=== PATIENT | male | born 1945 | race Caucasian/White ===

== ENCOUNTER 2018-02-16 06:15 | Day surgery (SDC) | payer MEDICARE ==
[2018-02-11 12:47] VITALS: BMI 30.7
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
[2018-02-16 06:48] VITALS: RESP 20; O2SAT 98
[2018-02-16] MEDS ORDERED: Lidocaine 2% PF (10 ml) Amp ONE (06:54)
[2018-02-16] MEDS ORDERED: Phenylephrine 10 mg/ml Inj ONE (06:54)
[2018-02-16] MEDS ORDERED: Iohexol 350mgl/ml 50 ML ONE (06:55)
[2018-02-16] MEDS ORDERED: Iodixanol 320 MG/ML 100 ML BOTTLE IV ONE (06:55)
[2018-02-16] MEDS ORDERED: Heparin 2,000 ML IV ONE (06:55)
[2018-02-16] MEDS ORDERED: Nitroglycerin 50mg in D5W 50 MG/250 ML BOTTLE IV ONE (06:55)
[2018-02-16] MEDS ORDERED: Iodixanol 320 MG/ML 200 ML BOTTLE IV ONE (06:55)
[2018-02-16 07:16] LABS: BASO # 0.04 K/mm3 (0.0-2.0); BASO % 0.5 % (0.0-3.0); EOS # 0.4 (0.0-0.7); EOS % 4.4 % (1.5-5.0); GRAN # 5.67 (1.4-6.5); GRAN % 65.9 % (50.0-68.0); HEMOGLOBIN 9.3 g/dL (14.0-18.0); LYMPH # 1.9 (1.2-3.4); LYMPH % 22.6 % (22.0-35.0); MEAN CELL VOLUME 80.1 fl (80.0-105.0); MEAN CORPUSCULAR HEMOGLOBIN 26.1 pg (25.0-35.0); MEAN CORPUSCULAR HGB CONC 32.6 g/dl (31.0-37.0); MEAN PLATELET VOLUME 9.1 fl (7.0-11.0); MONO # 0.6 (0.1-0.6); MONO % 6.6 % (1.0-6.0); RBC 3.56 10^6/uL (3.5-6.1); WHITE BLOOD COUNT 8.6 10^3/ul (4.5-11.0)
[2018-02-16 07:31] LABS: CALCIUM 8.8 mg/dL (8.4-10.5)
[2018-02-16] MEDS ORDERED: Midazolam 2 MG/2 ML VIAL ONE ×2 (07:32→08:11)
[2018-02-16 07:34] LABS: INR 1.06; PROTHROMBIN TIME 12.2 SECONDS (9.4-12.5)
[2018-02-16] MEDS ORDERED: Eptifibatide 20 mg/10mL Inj IVP ONE (08:07)
[2018-02-16] MEDS ORDERED: Bacitracin 500 Units/gm Oint Foilpak UD TOP ONE (08:56)
[2018-02-16] MEDS ORDERED: Sodium Chloride 0.9% 1,000 ML IV SCH (09:00)
--- NOTE | 2018-02-16 09:27 | CPOSTOP ---
DATE: 02/16/2018 CARDIOVASCULAR LAB POST PROCEDURE NOTE DICTATING PHYSICIAN: Cristel Nguyen MD AIRPLANE COVER MAKER: Lori Ybarra, rehabilitation technician. TYPE OF ANESTHESIA: Moderate conscious sedation. Total 2 mg of Versed, 100 of fentanyl given. Periodically started 1 mg of Versed, 50 of fentanyl. PRE-PROCEDURE DIAGNOSES: Unstable angina, history of coronary artery disease, in-stent restenosis. PROCEDURE PERFORMED: 1. Left heart catheterization, stenting of left anterior descending proximal and mid. 2. Angioplasty of mid left anterior descending with scoring balloon. FINDINGS: 1. LAD proximal 70-80% stenosis. 2. Mid LAD in-stent 80% stenosis. Patent stent in RCA. FINAL DIAGNOSIS: Single-vessel critical disease. POST PROCEDURE CONDITION: Post procedure, the patient's condition is stable. VASCULAR ACCESS SITE: Right femoral groin. CLOSURE DEVICE: Angio-Seal. TOTAL RADIATION DOSE: 15,275.4 milligray unit. TOTAL FLUORO TIME: 7 minutes. TOTAL CONTRAST USED: 90 mL. Cirstel Nguyen MD
[2018-02-16 12:25] VITALS: TEMP 97.8
[2018-02-16 13:05] LABS: BASO # 0.02 K/mm3 (0.0-2.0); BASO % 0.3 % (0.0-3.0); EOS # 0.3 (0.0-0.7); EOS % 4.2 % (1.5-5.0); GRAN # 4.02 (1.4-6.5); GRAN % 57.5 % (50.0-68.0); HEMOGLOBIN 8.7 g/dL (14.0-18.0); LYMPH # 2.1 (1.2-3.4); LYMPH % 30.4 % (22.0-35.0); MEAN CELL VOLUME 80.4 fl (80.0-105.0); MEAN CORPUSCULAR HEMOGLOBIN 25.9 pg (25.0-35.0); MEAN CORPUSCULAR HGB CONC 32.2 g/dl (31.0-37.0); MEAN PLATELET VOLUME 8.8 fl (7.0-11.0); MONO # 0.5 (0.1-0.6); MONO % 7.6 % (1.0-6.0); RBC 3.36 10^6/uL (3.5-6.1); RED CELL DISTRIBUTION WIDTH 15.1 % (11.5-14.5)
[2018-02-16 13:14] LABS: CALCIUM 8.2 mg/dL (8.4-10.5)
[2018-02-16 15:23] VITALS: PULSE 66
[2018-02-16 15:24] VITALS: BP 132/81
[2018-02-17] MEDS ORDERED: Multivitamin Vitamin B Complex (Nephro-Vite) Tab PO SCH (08:00)
== END 2018-02-16 16:00 | disposition home or self-care (01) ==
LOC: CATH 06:15 → 2RSO 09:05 → CATH 16:00
PROVIDERS: ATTEND Internal Medicine Cardiovascular Disease
DX: I25.110 Atherosclerotic heart disease of native coronary artery with unstable angina pectoris (principal); I21.4 Non-ST elevation (NSTEMI) myocardial infarction; N18.6 End stage renal disease; I12.0 Hypertensive chronic kidney disease with stage 5 chronic kidney disease or end stage renal disease; E78.5 Hyperlipidemia, unspecified; E11.22 Type 2 diabetes mellitus with diabetic chronic kidney disease; Z99.2 Dependence on renal dialysis
CPT/HCPCS: 36415; 80048; 80061; 82948; 85025; 85175; 85610; 85730; 86850; 86900; 93458; 99152; 99153; C1725; C1760; C1769 ×2; C1874; C1887; C2629; C9600; J1327; J1644 ×2; J2250; J3010; J7030; Q9966; Q9967 ×2

== ENCOUNTER 2018-04-15 17:08 | Inpatient (IN) | payer MEDICARE, BC ==
[2018-04-15 17:08] VITALS: BMI 30.7
[2018-04-15] MEDS ORDERED: Sodium Chloride 0.9% 1,000 ML IV ONE (17:29)
[2018-04-15] MEDS ORDERED: Sodium Chloride 0.9% 500 ML IV STA (17:35)
--- NOTE | 2018-04-15 17:35 | ED PDOC ---
Arrival/HPI - General Time Seen by Provider: 04/15/18 17:11 Historian: Patient - History of Present Illness Narrative History of Present Illness (Text): 04/15/18 17:35 72 year old male, whose past medical history includes cardiac stents (2 years ago), dialysis, on aspirin and brilinta, presents to the emergency department complaining of burning urination, earlier today. He also reports he was receiving his dialysis today and began to shivering, blankets and heat pads, did not help. Patient denies headache, dizziness, shortness of breath, dyspnea on exertion, cough, abdominal pain, nausea, vomiting, diarrhea, back pain, neck pain, or any other complaint. PMD: Dr. Hampton Air Table Operator: Dr. Tellez Time/Duration: 24 hours Symptom Course: Unchanged Activities at Onset: Light Context: Other ([facility]) Past Medical History - Provider Review Nursing Documentation Reviewed: Yes - Cardiac Hx Pacemaker: No - Pulmonary Hx Respiratory Disorders: No - Neurological Hx Paralysis: No - HEENT Hx HEENT Disorder: No - Renal Hx Renal Disorder: Yes - Endocrine/Metabolic Hx Endocrine Disorders: No - Hematological/Oncological Hx Blood Transfusions: No - Integumentary Hx Dermatological Disorder: No - Musculoskeletal/Rheumatological Hx Musculoskeletal Disorders: Yes - Gastrointestinal Hx Gastrointestinal Disorders: No - Genitourinary/Gynecological Hx Genitourinary Disorders: No - Psychiatric Hx Emotional Abuse: No Hx Physical Abuse: No Hx Substance Use: No - Surgical History Hx Coronary Stent: Yes (x1) - Anesthesia Hx Anesthesia Reactions: No Hx Malignant Hyperthermia: No - Suicidal Assessment Feels Threatened In Home Enviroment: No Family/Social History - Physician Review Nursing Documentation Reviewed: Yes Family/Social History: No Known Family HX Smoking Status: Never Smoked Hx Alcohol Use: No Hx Substance Use: No Allergies/Home Meds Allergies/Adverse Reactions: Allergies No Known Allergies Allergy (Verified 01/16/18 22:43) Home Medications: Home Meds Medication Instructions Recorded Confirmed RX: Ferrous Sulfate [Feosol] 325 mg PO DAILY 01/20/18 04/15/18 Review of Systems - Review of Systems Constitutional: Fevers, Other (chills ) Eyes: absent: Vision Changes Respiratory: absent: SOB, Cough Cardiovascular: absent: Chest Pain Gastrointestinal: absent: Abdominal Pain, Diarrhea, Nausea, Vomiting Genitourinary Male: Dysuria (burning sensation when urinating ) Musculoskeletal: absent: Back Pain, Neck Pain Skin: absent: Rash Neurological: absent: Headache, Dizziness Psychiatric: absent: Anxiety Physical Exam Vital Signs Reviewed: Yes Vital Signs Temp Pulse Resp BP Pulse Ox 04/15/18 17:25 101.4 F H 117 H 18 120/63 98 Temperature: Febrile Blood Pressure: Normal Pulse: Tachycardic Respiratory Rate: Normal Appearance: Positive for: Well-Appearing, Non-Toxic, Comfortable Pain Distress: None Mental Status: Positive for: Alert and Oriented X 3 - Systems Exam Head: Present: Atraumatic, Normocephalic Pupils: Present: PERRL Extroacular Muscles: Present: EOMI Conjunctiva: Present: Normal Mouth: Present: Moist Mucous Membranes Neck: Present: Normal Range of Motion Respiratory/Chest: Present: Clear to Auscultation, Good Air Exchange. No: Respiratory Distress, Accessory Muscle Use Cardiovascular: Present: Normal S1, S2, Tachycardic. No: Murmurs Abdomen: Present: Other (catheter to abdomen ). No: Tenderness, Distention, Peritoneal Signs Genitourinary Male: No: Penile Discharge, Testicle Tenderness (non tender scrotum ) Back: Present: Normal Inspection. No: CVA Tenderness Upper Extremity: Present: Other (amputation to the left arm ). No: Cyanosis, Edema Lower Extremity: Present: Normal Inspection. No: Edema Neurological: Present: GCS=15, CN II-XII Intact, Speech Normal Skin: Present: Warm, Dry, Normal Color. No: Rashes Psychiatric: Present: Alert, Oriented x 3, Normal Insight, Normal Concentration Medical Decision Making ED Course and Treatment: 04/15/18 17:35 Impression: 72 year old male who presents to the emergency department complaining of burning urination. Plan: -- VBG -- EKG -- Labs -- Chest X-ray -- IV Fluids -- Tylenol -- Blood Culture -- Urine Culture -- Influenza A B -- Urinalysis -- Reassess and disposition Prior Visits: Notes and results from previous visits were reviewed. Progress Notes: 04/15/18 18:24 EKG shows sinus tachycardia at 117bpm with pvcs 04/15/18 18:26 Chest X-ray reviewed, shows: IMPRESSION: No active pulmonary disease. 04/15/18 19:[address] Purvis, who is aware and agrees with the plan to admit the patient to [facility] for antibiotics and further evaluation with nephrology on consult - Lab Interpretations I have reviewed the lab results: Yes - RAD Interpretation Radiology Orders: 04/15/18 17:29 CHEST PORTABLE [RAD] Stat - EKG Interpretation Interpreted by ED Physician: Yes Type: 12 lead EKG - Medication Orders Current Medication Orders: Sodium Chloride (Sodium Chloride 0.9%) 1,000 mls @ 2,000 mls/hr IV .Q30M ONE Stop: 04/15/18 17:58 - Scribe Statement The provider has reviewed the documentation as recorded by the Rachelibantonette Gregory Provider Scribe Attestation: All medical record entries made by the Scribe were at my direction and personally dictated by me. I have reviewed the chart and agree that the record accurately reflects my personal performance of the history, physical exam, medical decision making, and the department course for this patient. I have also personally directed, reviewed, and agree with the discharge instructions and disposition. Disposition/Present on Arrival - Present on Arrival Any Indicators Present on Arrival: No History of DVT/PE: No History of Uncontrolled Diabetes: No Urinary Catheter: No History Surgical Site Infection Following: None - Disposition Have Diagnosis and Disposition been Completed?: Yes Diagnosis: UTI (urinary tract infection) Disposition: HOSPITALIZED Disposition Time: 18:50 Patient Plan: Admission Patient Problems: Current Active Problems Problem Status Onset UTI (urinary tract infection) Acute Condition: FAIR
[2018-04-15 17:42] LABS: VENOUS BLOOD GAS BASE EXCESS -1.1 mmol/L (0.0-2.0); VENOUS BLOOD GAS PO2 55 mm/Hg (30-55); VENOUS BLOOD PH 7.37 (7.32-7.43)
[2018-04-15 17:47] LABS: INR 1.19; PARTIAL THROMBOPLASTIN TIME 26.2 Seconds (25.1-36.5); PROTHROMBIN TIME 13.6 SECONDS (9.4-12.5)
[2018-04-15 17:50] LABS: ALB/GLOB RATIO 1.1 (1.1-1.8); CALCIUM 8.5 mg/dL (8.4-10.5)
[2018-04-15 17:53] LABS: BASO # 0.02 K/mm3 (0.0-2.0); BASO % 0.1 % (0.0-3.0); EOS # 0.1 (0.0-0.7); EOS % 0.7 % (1.5-5.0); GRAN # 12.36 (1.4-6.5); GRAN % 91.3 % (50.0-68.0); HEMOGLOBIN 9.8 g/dL (14.0-18.0); LYMPH # 0.6 (1.2-3.4); LYMPH % 4.6 % (22.0-35.0); MEAN CELL VOLUME 79.8 fl (80.0-105.0); MEAN CORPUSCULAR HGB CONC 32.6 g/dl (31.0-37.0); MEAN PLATELET VOLUME 9.2 fl (7.0-11.0); MONO # 0.5 (0.1-0.6); MONO % 3.3 % (1.0-6.0); PLATELET COUNT 284 10^3/uL (120.0-450.0); RBC 3.77 10^6/uL (3.5-6.1); RED CELL DISTRIBUTION WIDTH 15.6 % (11.5-14.5); WHITE BLOOD COUNT 13.6 10^3/uL (4.5-11.0)
--- NOTE | 2018-04-15 18:16 | RAD ---
Date of service: 04/15/2018 HISTORY: Sepsis Patient COMPARISON: 01/16/2018 FINDINGS: LUNGS: The lungs are well inflated and clear. PLEURA: No pleural effusions or pneumothorax. CARDIOVASCULAR: The heart is normal in size. Atherosclerotic aortic arch calcifications are present. OSSEOUS STRUCTURES: Within normal limits for the patient's age. VISUALIZED UPPER ABDOMEN: Normal. OTHER FINDINGS: None. IMPRESSION: No active pulmonary disease.
[2018-04-15] MEDS ORDERED: Magnesium Sulfate 2 gm/50 ml 2 GM/50 ML BAG IVPB ONE (18:27)
[2018-04-15 18:33] LABS: URINE BILIRUBIN NEGATIVE (NEGATIVE); URINE BLOOD MODERATE (NEGATIVE); URINE GLUCOSE (UA) 100 mg/dL (NEGATIVE); URINE LEUKOCYTE ESTERASE MODERATE Leu/uL (NEGATIVE); URINE PROTEIN 100 mg/dL (<30 mg/dL); URINE UROBILINOGEN 0.2 E.U./dL (<1 E.U./dL)
[2018-04-15 18:34] LABS: URINE APPEARANCE SL CLOUDY (CLEAR); URINE COLOR YELLOW (YELLOW)
[2018-04-15 18:41] LABS: ATYPICAL LYMPHOCYTE 1 % (0.0-0.0); LYMPHOCYTE 2 % (22.0-35.0); MONOCYTE 1 % (1.0-6.0); NEUTROPHIL 96 % (50.0-70.0); PLATELET ESTIMATE NORMAL (NORMAL)
[2018-04-15 18:45] LABS: URINE BACTERIA MANY (NEG); URINE WBC 25 - 30 /hpf (0-6)
[2018-04-15] MEDS ORDERED: cefTRIAXone 1 gm 1 GM/100 ML BAG IVPB STA (18:48)
--- NOTE | 2018-04-15 19:15 | CARD ---
APPROVED REPORT Date of service: 04/15/2018 EKG Measurement Heart [id number] <Conclusion> Sinus tachycardia with frequent and consecutive premature ventricular complexes and fusion complexes Abnormal ECG
[2018-04-16] MEDS ORDERED: cefTRIAXone 1 gm 1 GM/100 ML BAG IVPB SCH (10:00)
[2018-04-16] MEDS ORDERED: Barium Sulfate Susp 2.1% w/v, 2.0% w/w 450 mL Bottle PO ONE (10:58)
[2018-04-16] MEDS: Insulin Reg-MEDIUM-Coverage SC SCH ×3 (12:11→21:35)
[2018-04-16] MEDS: MEROPENEM 500 MG in NS 500 MG/50 ML BAG IVPB SCH ×2 (12:28→21:14)
--- NOTE | 2018-04-16 13:47 | HP ---
DATE OF EXAM: 04/16/2018 HISTORY OF PRESENT ILLNESS: I was called to see him. He is a 72-year-old man who presents with a history of being on peritoneal dialysis, comes in with burning on urination. He was shivering under the blankets. He was not feeling well overall and now he is here with a UTI sepsis picture possibly. PAST MEDICAL HISTORY: He has a past medical history of cardiac stents 2 years ago. He is on peritoneal dialysis home, he does it himself. He is on aspirin and Brilinta. His doctor is Dr. Tellez, for Nephrology and Dr. Hampton, his primary doctor does not come here. He has renal disorder. He has got musculoskeletal disorder of the left arm, amputated at the elbow. He has coronary stents. He also has hypertension, CAD, anemia and history high cholesterol. FAMILY HISTORY: No known family history. SOCIAL HISTORY: No smoker. No drinking. No drugs. ALLERGIES: NO KNOWN DRUG ALLERGIES. MEDICATIONS: He does take a fair amount of medications. He takes aspirin, Brilinta Catapres, Cozaar, iron, Lipitor, Lopressor and Nephro-Lay. REVIEW OF SYSTEMS: On review of systems, he has fever and chills. No acute vision or hearing changes. No shortness of breath or cough or chest pain or palpitations. No abdominal pain, nausea, vomiting, constipation or diarrhea. Does have burning sensation when he is urinating and comfortable. No back pain or neck pain or skin rashes. No headache or dizziness. No anxiety. PHYSICAL EXAMINATION: VITAL SIGNS: He has 101.4 temperature, 117 pulse, 18 respiratory rate, 120/63 blood pressure and 98% O2 sat. GENERAL: He is well appearing, nontoxic, comfortable, alert and oriented x3. HEENT: Head is atraumatic, normocephalic. Extraocular muscles are intact. Pupils are reactive to light and accommodation. Throat is moist. NECK: Supple. HEART: Regular rate. Normal S1 and S2. LUNGS: Decreased breath sounds bilaterally, but clear to auscultation. ABDOMEN: Soft and nontender. Positive bowel sounds. No guarding, no rebound or CVA tenderness. He does have the catheter in his abdomen. GENITALIA: In the ER, they did a genitale evaluation, testicles nontender, nontender scrotum, no penile discharge. EXTREMITIES: No CVA tenderness. He has a amputation of left arm. No edema of the extremities. NEUROLOGIC: GCS is 15. Cranial nerves II-XII grossly intact. Normal speech. Skin is warm and dry. Alert and oriented x3. LABORATORY DATA: He had multiple tests. He had a chest x-ray that showed no acute disease. An EKG which shows sinus tachycardia, consecutive premature ventricular complexes. He had lab tests done, negative for the flu. His urine was moderate leukocytes, many bacteria, moderate blood. He has 137 sodium, potassium 3.7, BUN 58, creatinine 7.1 peritoneal dialysis. GFR was , sugar is 132, also calcium is 8.5, phosphorous 5.2, magnesium 1.4, total bili is 0.9, AST is 27, ALT is 24, alk phos 84, total protein 7.6 and lactate was 1.7. He has 1.19 INR. He has a 13.6 white count elevated, 9.8 hemoglobin, 30.1 hematocrit with 284 platelets. He will be put back on his medications, he will have IV Rocephin, will have consult with Infectious Disease and Dr. Tellez, his kidney doctor. He is here for UTI. We are going to rule out sepsis. She also peritoneal dialysis, she has hypertension and hopefully he will improve. Trenton Purvis DO [facility] CENTERDesirae
[2018-04-16] MEDS ORDERED: Darbepoetin Alfa 60 mcg/ml Inj SC ONE (14:45)
--- NOTE | 2018-04-16 14:47 | CP.PCM.CON ---
History of Present Illness - History of Present Illness History of Present Illness: Nephrology Consultation Note: Assessment: Stable UTI with sepsis, hypomagnesemia CAD (3 vessel disease) with NSTEMI s/p cardiac cath and stents 01/19/18 Diabetic chronic Kidney Disease (E11.22) Hypertensive Chronic Kidney Disease (I12.0) End stage renal disease (N18.6) dependence on PD Anemia (D64.9), Hyperphosphatemia (E83.39), Secondary Hyperparathyroidism (E21.1), HTN (I12.0) Systolic CHF with LVEF 45% Plan: pt on PD with 2.5% [id number] mL exchange 4 times a day manually (4-5 hrs dwell time). pt will continue with his PD as per outpt regimen. will check fluid cell count and culture as well. d/w RN on floor. pt's son will bring supply from home nephrovite daily: continue same PRBC as needed for anemia. added POP s last Hb 9.8. aransep 60 mcg dose on 04/16/18 last phos level 5.2 acceptable. not on binders BP control with meds as ordered. on ARB as losartan Glycemic control, Dialysis consistent diet Further work up/management as per primary team Dose meds/antibiotics (if needed) for ESRD status. Avoid fleets enema/magnesium based laxatives. avoid carafate/maalox/ Al or mag based antacid/laxatives ID, urology following supplement lytes as needed Thanks for allowing me to participate in care of your patient. Will follow patient with you. Please call if any Qs. had d/w team Dr Andrea Marin Office: [phone] Chief Complaint; burning urination HPI: Pt is a 72 M with hx of ESRD on PD, chronic anemia, hyperphosphatemia, secondary hyperparathyroidism, Diabetes Mellitus, hypertension, CAD/p stent presented with complaints of dysuria and being managed for UTI with sepsis.pt feels better. Renal consult requested for ESRD management. reports PD fluid clear and denies pain abdomen. ROS: Cardiovascular: No chest pain. Pulmonary: No shortness of breath Gastrointestinal: denies abdominal pain No nausea. No vomiting. says fluid has been clear Genitourinary: c/o pain while urinating. Denies blood in urine. All other negative except as mentioned in HPI Physical Examination: General Appearance: Comfortable, in no acute respiratory distress, co-operative . Vitals reviewed and noted as below Head; Atraumatic, normocephalic ENT: no ulcers no thrush. Tongue is midline. Oropharynx: no rash or ulcers. EYES: Pupils are equal, round and reactive to light accommodation. Eye muscles and extraocular movement intact. Sclera is anicteric. Neck; supple no lymphadenopathy, no thyromegaly or bruit Lungs: Normal respiratory rate/effort. Breath sounds bilateral equal and clear Heart: Normal rate. s1s2 normal. No rub or gallop. Extremities: no edema. No varicose veins. hx of left hand amputation Neurological: Patient is alert, awake and oriented to person, place and time. No focal deficit. Strength bilateral appropriate and equal Skin: Warm and dry. Normal turgor. No rash. Palpitation: Normal elasticity for age Abdomen: Abdomen is soft. Bowel sounds +. There is no abdominal tenderness, no guarding/rigidity or organomegaly Psych: normal insight and normal affect/mood MSK: no joint tenderness or swelling. Digits and nails normal, no deformity : kidney or bladder not palpable Access: PD catheter Labs/imaging reviewed. Past medical history, past surgical history, family history, social history, allergy reviewed and noted as below Family Hx: no hx of CKD. Non contributory Past Patient History - Infectious Disease Hx of Infectious Diseases: None - Past Social History Smoking Status: Former Smoker - CARDIAC Hx Cardiac Disorders: Yes Hx Congestive Heart Failure: Yes (unsure) Hx Hypertension: Yes - PULMONARY Hx Respiratory Disorders: No - NEUROLOGICAL Hx Neurological Disorder: Yes Hx Transient Ischemic Attacks (TIA): Yes - HEENT Hx HEENT Problems: Yes (wears glasses) - RENAL Hx Chronic Kidney Disease: Yes Hx Dialysis: Yes (peritoneal) Hx Kidney Stones: Yes - ENDOCRINE/METABOLIC Hx Endocrine Disorders: Yes Hx Diabetes Mellitus Type 2: Yes - HEMATOLOGICAL/ONCOLOGICAL Hx Blood Disorders: No - INTEGUMENTARY Hx Dermatological Problems: No - MUSCULOSKELETAL/RHEUMATOLOGICAL Hx Musculoskeletal Disorders: Yes (left arm amputation) Hx Falls: No - GASTROINTESTINAL Hx Gastrointestinal Disorders: No - GENITOURINARY/GYNECOLOGICAL Hx Genitourinary Disorders: Yes Hx Urinary Tract Infection: Yes - PSYCHIATRIC Hx Psychophysiologic Disorder: No - SURGICAL HISTORY Hx Surgeries: Yes Hx Coronary Stent: Yes (x4) Hx Musculoskeletal Surgery: Yes (left arm amputation) - ANESTHESIA Hx Anesthesia Reactions: No Hx Malignant Hyperthermia: No Meds Allergies/Adverse Reactions: Allergies Allergy/AdvReac Type Severity Reaction Status Date / Time No Known Allergies Allergy Verified 01/16/18 22:43 - Medications Medications: Current Medications Aspirin (Aspirin Chewable) 81 mg PO DAILY [facility] Last Admin: 04/16/18 09:50 Dose: 81 mg Atorvastatin Calcium (Lipitor) 10 mg PO DAILY [facility] Last Admin: 04/16/18 09:50 Dose: 10 mg Clonidine HCl (Catapres) 0.1 mg PO BID [facility] Last Admin: 04/16/18 09:51 Dose: 0.1 mg Ferrous Sulfate (Feosol) 325 mg PO DAILY [facility] Last Admin: 04/16/18 09:50 Dose: 325 mg Meropenem/Sodium Chloride (Merrem Iv 500 Mg/Ns 50 Ml) 500 mg in 50 mls @ 12.5 mls/hr IVPB Q12 [facility]; Protocol Stop: 04/25/18 10:31 Last Admin: 04/16/18 12:28 Dose: 12.5 mls/hr Insulin Human Regular (Humulin R Med) 0 units SC [facility]; Protocol Last Admin: 04/16/18 12:11 Dose: 1 units Losartan Potassium (Cozaar) 100 mg PO DAILY [facility] Last Admin: 04/16/18 09:50 Dose: 100 mg Magnesium Oxide (Mag-Ox) 400 mg PO BID [facility] Metoprolol Tartrate (Lopressor) 50 mg PO BID [facility] Last Admin: 04/16/18 09:50 Dose: 50 mg Ticagrelor (Brilinta) 90 mg PO BID [facility] Last Admin: 04/16/18 09:50 Dose: 90 mg Vitamin B Complex/Vit C/Folic Acid (Nephro-Lay) 1 tab PO 0800 [facility] Results - Vital Signs Recent Vital Signs: Last Vital Signs Temp 98.6 F 04/16/18 09:00 Pulse 99 H 04/16/18 09:51 Resp 20 04/15/18 22:27 BP 113/70 04/16/18 09:51 Pulse Ox 98 04/15/18 21:01 - Labs Result Diagrams: 04/15/18 17:14 04/15/18 17:14 Labs: Laboratory Results - last 24 hr 12/05/18 12/05/18 12/05/18 17:14 17:14 17:14 WBC 13.6 H RBC 3.77 Hgb 9.8 L Hct 30.1 L MCV 79.8 L MCH 26.0 MCHC 32.6 RDW 15.6 H Plt Count 284 MPV 9.2 Gran % 91.3 H Lymph % (Auto) 4.6 L [place] % (Auto) 3.3 Eos % (Auto) 0.7 L Baso % (Auto) 0.1 Gran # 12.36 H Lymph # (Auto) 0.6 L [place] # (Auto) 0.5 Eos # (Auto) 0.1 Baso # (Auto) 0.02 Neutrophils % (Manual) 96 H Lymphocytes % (Manual) 2 L Atypical Lymphs % 1 H Monocytes % (Manual) 1 Platelet Evaluation Normal PT 13.6 H INR 1.19 APTT 26.2 pO2 55 VBG pH 7.37 VBG pCO2 42.0 VBG HCO3 24.3 VBG Total CO2 25.6 VBG O2 Sat (Calc) 90.6 H VBG Base Excess -1.1 L VBG Potassium 3.7 Sodium 135.0 Chloride 98.0 Glucose 140 H Lactate 1.7 FiO2 21.0 Potassium Carbon Dioxide Anion Gap BUN Creatinine Est GFR ( Amer) Est GFR (Non-Af Amer) POC Glucose (mg/dL) Random Glucose Calcium Phosphorus Magnesium Total Bilirubin AST ALT Alkaline Phosphatase Total Protein Albumin Globulin Albumin/Globulin Ratio Venous Blood Potassium 3.7 Urine Color Urine Appearance Urine pH Ur Specific [place] Urine Protein Urine Glucose (UA) Urine Ketones Urine Blood Urine Nitrate Urine Bilirubin Urine Urobilinogen Ur Leukocyte Esterase Urine RBC Urine WBC Ur Epithelial Cells Urine Bacteria Influenza Typ A,B (EIA) 04/15/18 04/15/18 04/15/18 17:14 17:30 18:29 WBC RBC Hgb Hct MCV MCH MCHC RDW Plt Count MPV Gran % Lymph % (Auto) [place] % (Auto) Eos % (Auto) Baso % (Auto) Gran # Lymph # (Auto) [place] # (Auto) Eos # (Auto) Baso # (Auto) Neutrophils % (Manual) Lymphocytes % (Manual) Atypical Lymphs % Monocytes % (Manual) Platelet Evaluation PT INR APTT pO2 VBG pH VBG pCO2 VBG HCO3 VBG Total CO2 VBG O2 Sat (Calc) VBG Base Excess VBG Potassium Sodium 137 Chloride 97 L Glucose Lactate FiO2 Potassium 3.7 Carbon Dioxide 23 Anion Gap 20 BUN 58 H Creatinine 7.1 H Est GFR ( Amer) 9 Est GFR (Non-Af Amer) 8 POC Glucose (mg/dL) Random Glucose 132 H Calcium 8.5 Phosphorus 5.2 H Magnesium 1.4 L Total Bilirubin 0.9 AST 27 ALT 24 Alkaline Phosphatase 84 Total Protein 7.6 Albumin 4.0 Globulin 3.6 Albumin/Globulin Ratio 1.1 Venous Blood Potassium Urine Color Yellow Urine Appearance Sl cloudy Urine pH 6.0 Ur Specific [place] 1.025 Urine Protein 100 H Urine Glucose (UA) 100 H Urine Ketones Negative Urine Blood Moderate H Urine Nitrate Negative Urine Bilirubin Negative Urine Urobilinogen 0.2 Ur Leukocyte Esterase Moderate H Urine RBC 5 - 10 Urine WBC 25 - 30 Ur Epithelial Cells 6 - 8 Urine Bacteria Many Influenza Typ A,B (EIA) Negative for flu a/b 04/15/18 04/16/18 04/16/18 22:40 07:17 11:18 WBC RBC Hgb Hct MCV MCH MCHC RDW Plt Count MPV Gran % Lymph % (Auto) [place] % (Auto) Eos % (Auto) Baso % (Auto) Gran # Lymph # (Auto) [place] # (Auto) Eos # (Auto) Baso # (Auto) Neutrophils % (Manual) Lymphocytes % (Manual) Atypical Lymphs % Monocytes % (Manual) Platelet Evaluation PT INR APTT pO2 VBG pH VBG pCO2 VBG HCO3 VBG Total CO2 VBG O2 Sat (Calc) VBG Base Excess VBG Potassium Sodium Chloride Glucose Lactate FiO2 Potassium Carbon Dioxide Anion Gap BUN Creatinine Est GFR ( Amer) Est GFR (Non-Af Amer) POC Glucose (mg/dL) 96 151 H 193 H Random Glucose Calcium Phosphorus Magnesium Total Bilirubin AST ALT Alkaline Phosphatase Total Protein Albumin Globulin Albumin/Globulin Ratio Venous Blood Potassium Urine Color Urine Appearance Urine pH Ur Specific [place] Urine Protein Urine Glucose (UA) Urine Ketones Urine Blood Urine Nitrate Urine Bilirubin Urine Urobilinogen Ur Leukocyte Esterase Urine RBC Urine WBC Ur Epithelial Cells Urine Bacteria Influenza Typ A,B (EIA)
--- NOTE | 2018-04-16 15:29 | CT ---
Date of service: 04/16/2018 PROCEDURE: CT Abdomen and Pelvis without intravenous contrast HISTORY: r/o pyelonephritis, r/o perinephritic abscess COMPARISON: None. TECHNIQUE: Without contrast.. Contrast dose: Radiation dose: Total exam DLP = 832.49 mGy-cm. This CT exam was performed using one or more of the following dose reduction techniques: Automated exposure control, adjustment of the mA and/or kV according to patient size, and/or use of iterative reconstruction technique. FINDINGS: LOWER THORAX: Unremarkable. LIVER: Unremarkable. No gross lesion or ductal dilatation. GALLBLADDER AND BILE DUCTS: Unremarkable. PANCREAS: Unremarkable. No gross lesion or ductal dilatation. SPLEEN: Unremarkable. ADRENALS: Unremarkable. No mass. KIDNEYS AND URETERS: There is perinephric stranding around the left kidney that is consistent with the clinical history of pyelonephritis. Multiple bilateral renal cysts are seen. There is no evidence of abscess. VASCULATURE: Unremarkable. No aortic aneurysm. Aortic calcification BOWEL: Unremarkable. No obstruction. No gross mural thickening. APPENDIX: Unremarkable. Normal appendix. PERITONEUM: There is a moderate amount of ascites. A peritoneal catheter is seen just above the bladder. LYMPH NODES: Unremarkable. No enlarged lymph nodes. BLADDER: Unremarkable. REPRODUCTIVE: Unremarkable. BONES: No acute fracture. OTHER FINDINGS: None. IMPRESSION: There is perinephric stranding around the left kidney that is consistent with the clinical history of pyelonephritis. Multiple bilateral renal cysts are seen. There is no evidence of abscess.
--- NOTE | 2018-04-16 15:45 | CON ---
DATE: 04/16/2018 The patient is in bed and in room 369, bed 2. CHIEF COMPLAINT: Fever and urinary symptoms times several days. HISTORY OF PRESENT ILLNESS: A 72-year-old male with history of coronary artery disease, history of renal failure on dialysis with peritoneal dialysis and TIA and long-time smoker, who is admitted now dysuria and was painful upon urination associated with fevers and chills and no abdominal pain. No flank pain. No headaches or blurred vision. REVIEW OF SYSTEM: Reveals a 14-point review of systems is performed. PAST MEDICAL HISTORY: Significant for coronary artery disease, TIA, long-time smoker and dialysis and renal failure. PAST SURGICAL HISTORY: Significant for cardiac catheterization with cardiac stent placement. ALLERGIES: THE PATIENT HAS NO KNOWN ALLERGIES. MEDICATIONS AT HOME: Include the patient to be on iron, atorvastatin, aspirin, metoprolol, losartan, clonidine, and vitamin. PHYSICAL EXAMINATION: GENERAL: The patient is in bed with a temperature of 101.4, heart rate of 117, respiratory rate of 18, blood pressure is 113/70. HEENT: Unremarkable. NECK: Supple. LUNGS: Have decreased breath sounds. HEART: Normal S1, S2. ABDOMEN: Soft, nontender. LABORATORY EXAMINATION: Reveals the patient's chest x-ray is negative and the white count of 13,600, hemoglobin of 9, platelets of 284 and differential is reviewed. Coagulation INR 1.1 and blood gases are reviewed. Chemistries reveals a creatinine of 7.1, magnesium 1.4. LFTs are normal and chloride is noted. Urinalysis reveals 25-30 WBCs, many bacteria, moderate leukocyte esterase, moderate blood proteinuria and glucosuria. ASSESSMENT AND PLAN: This is a 72-year-old male with a coronary artery disease and transient ischemic attack sepsis with a complicated urine as the source, must rule out underlying prostate disease and we will start the patient on meropenem, order a CT scan of the abdomen and pelvis with p.o. contrast only to rule out pyelonephritis and perinephric abscess and/or stones and always check on the blood cultures, urine cultures and check on a PSA. Recommend a Urology evaluation for this man with a complicated urinary tract infection and prostate disease as the course of his sepsis. Joey Begum MD [facility] # [id number]
--- NOTE | 2018-04-16 16:32 | PCM.URO ---
Urology Progress Note - Objective Lab Studies: Reviewed (thanks for gu consult plans to follow) Lab Results Last 24 Hours: Laboratory Results - last 24 hr 04/15/18 04/15/18 04/15/18 17:14 17:14 17:14 WBC 13.6 H RBC 3.77 Hgb 9.8 L Hct 30.1 L MCV 79.8 L MCH 26.0 MCHC 32.6 RDW 15.6 H Plt Count 284 MPV 9.2 Gran % 91.3 H Lymph % (Auto) 4.6 L [place] % (Auto) 3.3 Eos % (Auto) 0.7 L Baso % (Auto) 0.1 Gran # 12.36 H Lymph # (Auto) 0.6 L [place] # (Auto) 0.5 Eos # (Auto) 0.1 Baso # (Auto) 0.02 Neutrophils % (Manual) 96 H Lymphocytes % (Manual) 2 L Atypical Lymphs % 1 H Monocytes % (Manual) 1 Platelet Evaluation Normal PT 13.6 H INR 1.19 APTT 26.2 pO2 55 VBG pH 7.37 VBG pCO2 42.0 VBG HCO3 24.3 VBG Total CO2 25.6 VBG O2 Sat (Calc) 90.6 H VBG Base Excess -1.1 L VBG Potassium 3.7 Sodium 135.0 Chloride 98.0 Glucose 140 H Lactate 1.7 FiO2 21.0 Potassium Carbon Dioxide Anion Gap BUN Creatinine Est GFR ( Amer) Est GFR (Non-Af Amer) POC Glucose (mg/dL) Random Glucose Calcium Phosphorus Magnesium Total Bilirubin AST ALT Alkaline Phosphatase Total Protein Albumin Globulin Albumin/Globulin Ratio Venous Blood Potassium 3.7 Urine Color Urine Appearance Urine pH Ur Specific [place] Urine Protein Urine Glucose (UA) Urine Ketones Urine Blood Urine Nitrate Urine Bilirubin Urine Urobilinogen Ur Leukocyte Esterase Urine RBC Urine WBC Ur Epithelial Cells Urine Bacteria Influenza Typ A,B (EIA) 04/15/18 04/15/18 04/15/18 17:14 17:30 18:29 WBC RBC Hgb Hct MCV MCH MCHC RDW Plt Count MPV Gran % Lymph % (Auto) [place] % (Auto) Eos % (Auto) Baso % (Auto) Gran # Lymph # (Auto) [place] # (Auto) Eos # (Auto) Baso # (Auto) Neutrophils % (Manual) Lymphocytes % (Manual) Atypical Lymphs % Monocytes % (Manual) Platelet Evaluation PT INR APTT pO2 VBG pH VBG pCO2 VBG HCO3 VBG Total CO2 VBG O2 Sat (Calc) VBG Base Excess VBG Potassium Sodium 137 Chloride 97 L Glucose Lactate FiO2 Potassium 3.7 Carbon Dioxide 23 Anion Gap 20 BUN 58 H Creatinine 7.1 H Est GFR ( Amer) 9 Est GFR (Non-Af Amer) 8 POC Glucose (mg/dL) Random Glucose 132 H Calcium 8.5 Phosphorus 5.2 H Magnesium 1.4 L Total Bilirubin 0.9 AST 27 ALT 24 Alkaline Phosphatase 84 Total Protein 7.6 Albumin 4.0 Globulin 3.6 Albumin/Globulin Ratio 1.1 Venous Blood Potassium Urine Color Yellow Urine Appearance Sl cloudy Urine pH 6.0 Ur Specific [place] 1.025 Urine Protein 100 H Urine Glucose (UA) 100 H Urine Ketones Negative Urine Blood Moderate H Urine Nitrate Negative Urine Bilirubin Negative Urine Urobilinogen 0.2 Ur Leukocyte Esterase Moderate H Urine RBC 5 - 10 Urine WBC 25 - 30 Ur Epithelial Cells 6 - 8 Urine Bacteria Many Influenza Typ A,B (EIA) Negative for flu a/b 04/15/18 04/16/18 04/16/18 22:40 07:17 11:18 WBC RBC Hgb Hct MCV MCH MCHC RDW Plt Count MPV Gran % Lymph % (Auto) [place] % (Auto) Eos % (Auto) Baso % (Auto) Gran # Lymph # (Auto) [place] # (Auto) Eos # (Auto) Baso # (Auto) Neutrophils % (Manual) Lymphocytes % (Manual) Atypical Lymphs % Monocytes % (Manual) Platelet Evaluation PT INR APTT pO2 VBG pH VBG pCO2 VBG HCO3 VBG Total CO2 VBG O2 Sat (Calc) VBG Base Excess VBG Potassium Sodium Chloride Glucose Lactate FiO2 Potassium Carbon Dioxide Anion Gap BUN Creatinine Est GFR ( Amer) Est GFR (Non-Af Amer) POC Glucose (mg/dL) 96 151 H 193 H Random Glucose Calcium Phosphorus Magnesium Total Bilirubin AST ALT Alkaline Phosphatase Total Protein Albumin Globulin Albumin/Globulin Ratio Venous Blood Potassium Urine Color Urine Appearance Urine pH Ur Specific [place] Urine Protein Urine Glucose (UA) Urine Ketones Urine Blood Urine Nitrate Urine Bilirubin Urine Urobilinogen Ur Leukocyte Esterase Urine RBC Urine WBC Ur Epithelial Cells Urine Bacteria Influenza Typ A,B (EIA) 04/16/18 16:30 WBC RBC Hgb Hct MCV MCH MCHC RDW Plt Count MPV Gran % Lymph % (Auto) [place] % (Auto) Eos % (Auto) Baso % (Auto) Gran # Lymph # (Auto) [place] # (Auto) Eos # (Auto) Baso # (Auto) Neutrophils % (Manual) Lymphocytes % (Manual) Atypical Lymphs % Monocytes % (Manual) Platelet Evaluation PT INR APTT pO2 VBG pH VBG pCO2 VBG HCO3 VBG Total CO2 VBG O2 Sat (Calc) VBG Base Excess VBG Potassium Sodium Chloride Glucose Lactate FiO2 Potassium Carbon Dioxide Anion Gap BUN Creatinine Est GFR ( Amer) Est GFR (Non-Af Amer) POC Glucose (mg/dL) 182 H Random Glucose Calcium Phosphorus Magnesium Total Bilirubin AST ALT Alkaline Phosphatase Total Protein Albumin Globulin Albumin/Globulin Ratio Venous Blood Potassium Urine Color Urine Appearance Urine pH Ur Specific [place] Urine Protein Urine Glucose (UA) Urine Ketones Urine Blood Urine Nitrate Urine Bilirubin Urine Urobilinogen Ur Leukocyte Esterase Urine RBC Urine WBC Ur Epithelial Cells Urine Bacteria Influenza Typ A,B (EIA) Intake & Output: Intake & Output 04/15/18 04/16/18 04/16/18 18:59 06:59 18:59 Intake Total 480 Output Total 1250 Balance -770 Weight 185 lb Intake: Oral 480 Output: Drainage 1000 dialysis cath 1000 Urine 250 Urine, Voided 250 Vital Signs: Vital Signs - 24 hr 04/15/18 04/15/18 04/15/18 17:25 17:42 17:49 Temperature 101.4 F H 101.4 F H Pulse Rate 117 H 112 H Respiratory 18 18 Rate Blood Pressure 120/63 122/75 O2 Sat by Pulse 98 95 Oximetry 04/15/18 04/15/18 04/15/18 17:57 19:10 21:01 Temperature 99.3 F Pulse Rate 108 H 102 H 99 H Respiratory 122 H 20 22 Rate Blood Pressure 122/80 116/72 136/72 O2 Sat by Pulse 98 97 98 Oximetry 04/15/18 04/16/18 04/16/18 22:27 06:10 09:00 Temperature 100.1 F H 100.8 F H 98.6 F Pulse Rate Respiratory 20 Rate Blood Pressure O2 Sat by Pulse Oximetry 04/16/18 04/16/18 09:50 09:51 Temperature Pulse Rate 99 H 99 H Respiratory Rate Blood Pressure 113/70 113/70 O2 Sat by Pulse Oximetry
[2018-04-16] MEDS: Magnesium Oxide 400 mg Tab UD PO SCH (17:30)
[2018-04-16 21:59] LABS: BODY FLUID TYPE PERITONEAL
[2018-04-16 22:21] LABS: BF GROSS APPEARANCE CLEAR (CLEAR)
[2018-04-16 22:31] LABS: BODY FLUID TOTAL COUNT 100 (0-0)
[2018-04-17 06:42] LABS: HEMOGLOBIN 8.5 g/dL (14.0-18.0); MEAN CELL VOLUME 79.8 fl (80.0-105.0); MEAN CORPUSCULAR HEMOGLOBIN 25.7 pg (25.0-35.0); MEAN CORPUSCULAR HGB CONC 32.2 g/dl (31.0-37.0); MEAN PLATELET VOLUME 9.5 fl (7.0-11.0); RBC 3.31 10^6/uL (3.5-6.1); RED CELL DISTRIBUTION WIDTH 15.9 % (11.5-14.5); WHITE BLOOD COUNT 18.6 10^3/uL (4.5-11.0)
[2018-04-17 07:16] LABS: ALBUMIN 3.1 g/dL (3.0-4.8); CALCIUM 8.4 mg/dL (8.4-10.5)
[2018-04-17] MEDS: Insulin Reg-MEDIUM-Coverage SC SCH ×4 (09:01→23:45)
[2018-04-17] MEDS: MEROPENEM 500 MG in NS 500 MG/50 ML BAG IVPB SCH ×2 (09:06→21:15)
[2018-04-17] MEDS: Magnesium Oxide 400 mg Tab UD PO SCH ×2 (09:06→17:29)
[2018-04-17] MEDS: Multivitamin Vitamin B Complex (Nephro-Vite) Tab PO SCH (09:06)
[2018-04-17] MEDS ORDERED: Magnesium Sulfate 2 gm/50 ml 2 GM/50 ML BAG IVPB ONE (11:25)
[2018-04-17] MEDS ORDERED: Potassium Chloride 20 mEq ER Tab PO ONE (11:26)
--- NOTE | 2018-04-17 13:30 | PCM.URO ---
Urology Progress Note - Subjective Abdominal Pain: Yes Hematuria: Yes (antibiotics and out pt treatment from a gu standpoint ) - Objective Lab Results Last 24 Hours: Laboratory Results - last 24 hr 04/16/18 04/16/18 04/16/18 16:30 20:00 21:10 WBC RBC Hgb Hct MCV MCH MCHC RDW Plt Count MPV Sodium Potassium Chloride Carbon Dioxide Anion Gap BUN Creatinine Est GFR ( Amer) Est GFR (Non-Af Amer) POC Glucose (mg/dL) 182 H 166 H Random Glucose Calcium Magnesium Total Bilirubin AST ALT Alkaline Phosphatase Total Protein Albumin Globulin Albumin/Globulin Ratio Fluid Source Peritoneal Fluid Appearance Clear Fluid WBC 25.0 Fluid RBC 8.0 H Fluid Tot Cell Count 100 H Fluid Mononuclear Cell 33.3 H Fl Polymorphonucl Cell 66.7 H Fluid Comment Colorless 04/17/18 04/17/18 04/17/18 06:00 06:00 07:54 WBC 18.6 H D RBC 3.31 L Hgb 8.5 L Hct 26.4 L MCV 79.8 L MCH 25.7 MCHC 32.2 RDW 15.9 H Plt Count 217 MPV 9.5 Sodium 135 Potassium 3.6 Chloride 96 L Carbon Dioxide 26 Anion Gap 16 BUN 61 H Creatinine 7.0 H Est GFR ( Amer) 9 Est GFR (Non-Af Amer) 8 POC Glucose (mg/dL) 166 H Random Glucose 209 H Calcium 8.4 Magnesium 1.5 L Total Bilirubin 0.4 AST 30 ALT 20 Alkaline Phosphatase 115 Total Protein 6.3 Albumin 3.1 Globulin 3.2 Albumin/Globulin Ratio 1.0 L Fluid Source Fluid Appearance Fluid WBC Fluid RBC Fluid Tot Cell Count Fluid Mononuclear Cell Fl Polymorphonucl Cell Fluid Comment 04/17/18 11:23 WBC RBC Hgb Hct MCV MCH MCHC RDW Plt Count MPV Sodium Potassium Chloride Carbon Dioxide Anion Gap BUN Creatinine Est GFR ( Amer) Est GFR (Non-Af Amer) POC Glucose (mg/dL) 153 H Random Glucose Calcium Magnesium Total Bilirubin AST ALT Alkaline Phosphatase Total Protein Albumin Globulin Albumin/Globulin Ratio Fluid Source Fluid Appearance Fluid WBC Fluid RBC Fluid Tot Cell Count Fluid Mononuclear Cell Fl Polymorphonucl Cell Fluid Comment Intake & Output: Intake & Output 04/16/18 04/17/18 04/17/18 18:59 06:59 18:59 Intake Total 810 530 Output Total 100 1100 Balance 710 -570 Intake: IV 150 50 RIGHT FOREARM 150 50 Oral 660 480 Output: Drainage 1000 dialysis cath 1000 Urine 100 100 Urine, Voided 100 100 Other: # Voids Urine, Voided 3 5 # Bowel Movements 0 Vital Signs: Vital Signs - 24 hr 04/16/18 04/16/18 04/16/18 17:06 17:30 17:31 Temperature 99.5 F Pulse Rate 94 H 94 H 94 H Respiratory 20 Rate Blood Pressure 119/65 119/65 119/65 O2 Sat by Pulse 96 Oximetry 04/17/18 04/17/18 04/17/18 06:00 09:04 09:05 Temperature 98.9 F Pulse Rate 85 85 85 Respiratory 20 Rate Blood Pressure 115/57 L 115/57 L 115/57 L O2 Sat by Pulse 99 Oximetry
--- NOTE | 2018-04-17 13:40 | CP.PCM.PN ---
Subjective - Date & Time of Evaluation Date of Evaluation: 04/17/18 Time of Evaluation: 10:15 - Subjective Subjective: Feeling better, dysuria is improving, no fevers overnight, no nausea. Objective - Vital Signs/Intake and Output Vital Signs (last 24 hours): Temp Pulse Resp BP Pulse Ox 98.9 F 85 20 115/57 L 99 04/17/18 06:00 04/17/18 09:05 04/17/18 06:00 04/17/18 09:05 04/17/18 06:00 Intake and Output: 04/17/18 04/17/18 06:59 18:59 Intake Total 530 Output Total 1100 Balance -570 - Medications Medications: Current Medications Aspirin (Aspirin Chewable) 81 mg PO DAILY [facility] Last Admin: 04/17/18 09:06 Dose: 81 mg Atorvastatin Calcium (Lipitor) 10 mg PO DAILY [facility] Last Admin: 04/17/18 09:06 Dose: 10 mg Clonidine HCl (Catapres) 0.1 mg PO BID [facility] Last Admin: 04/17/18 09:04 Dose: 0.1 mg Meropenem/Sodium Chloride (Merrem Iv 500 Mg/Ns 50 Ml) 500 mg in 50 mls @ 12.5 mls/hr IVPB Q12 [facility]; Protocol Stop: 04/25/18 10:31 Last Admin: 04/17/18 09:06 Dose: 12.5 mls/hr Insulin Human Regular (Humulin R Med) 0 units SC ACHS [facility]; Protocol Last Admin: 04/17/18 09:01 Dose: 1 units Losartan Potassium (Cozaar) 100 mg PO DAILY [facility] Last Admin: 04/17/18 09:06 Dose: 100 mg Magnesium Oxide (Mag-Ox) 400 mg PO BID [facility] Last Admin: 04/17/18 09:06 Dose: 400 mg Metoprolol Tartrate (Lopressor) 50 mg PO BID [facility] Last Admin: 04/17/18 09:05 Dose: 50 mg Ticagrelor (Brilinta) 90 mg PO BID [facility] Last Admin: 04/17/18 09:05 Dose: 90 mg Vitamin B Complex/Vit C/Folic Acid (Nephro-Lay) 1 tab PO 0800 [facility] Last Admin: 04/17/18 09:06 Dose: 1 tab - Labs Labs: 04/17/18 06:00 12/07/18 06:00 PT 13.6 SECONDS (9.4-12.5) H 04/15/18 17:14 INR 1.19 04/15/18 17:14 APTT 26.2 Seconds (25.1-36.5) 04/15/18 17:14 - Constitutional Appears: Chronically Ill - Head Exam Head Exam: NORMAL INSPECTION - Neck Exam Neck Exam: absent: Meningismus - Respiratory Exam Respiratory Exam: Decreased Breath Sounds - Cardiovascular Exam Cardiovascular Exam: +S1, +S2 - GI/Abdominal Exam GI & Abdominal Exam: Soft. absent: Tenderness Assessment and Plan - Assessment and Plan (Free Text) Plan: Assessment Sepsis due to left sided pyelonephritis with gram negative bacilli, slowly improving CAD S/P PCI and stents DM ESRD on PD chronic CHF Plan continue Merrem pending identification and sensitivities of the gram negative bacilli in the urine (day 2) WBC count increased but patient is afebrile this morning, feeling a little better - will monitor clinically and trend WBC count - discussed with Dr. Purvis
--- NOTE | 2018-04-17 13:53 | CP.PCM.PN ---
Subjective - Date & Time of Evaluation Date of Evaluation: 04/17/18 Time of Evaluation: 13:52 - Subjective Subjective: Nephrology Consultation Note: Assessment: Stable UTI/left pyelonephritis with sepsis, hypomagnesemia CAD (3 vessel disease) with NSTEMI s/p cardiac cath and stents 01/19/18 Diabetic chronic Kidney Disease (E11.22) Hypertensive Chronic Kidney Disease (I12.0) End stage renal disease (N18.6) dependence on PD Anemia (D64.9), Hyperphosphatemia (E83.39), Secondary Hyperparathyroidism (E21.1), HTN (I12.0) Systolic CHF with LVEF 45% Plan: pt on PD with 2.5% 0860-2960 mL exchange 4 times a day manually (4-5 hrs dwell time). pt will continue with his PD as per outpt regimen. nephrovite daily: continue same PRBC as needed for anemia. added POP s last Hb 8.5. aransep 60 mcg dose on 04/16/18 last phos level 5.2 acceptable. not on binders BP control with meds as ordered. on ARB as losartan Glycemic control, Dialysis consistent diet Further work up/management as per primary team Dose meds/antibiotics (if needed) for ESRD status. Avoid fleets enema/magnesium based laxatives. avoid carafate/maalox/ Al or mag based antacid/laxatives ID, urology following supplement lytes as needed Thanks for allowing me to participate in care of your patient. Will follow patient with you. Please call if any Qs. had d/w team Dr Andrea Marin Office: [phone] Chief Complaint; burning urination HPI: Pt is a 72 M with hx of ESRD on PD, chronic anemia, hyperphosphatemia, secondary hyperparathyroidism, Diabetes Mellitus, hypertension, CAD/p stent presented with complaints of dysuria and being managed for UTI with sepsis.pt feels better. Renal consult requested for ESRD management. reports PD fluid clear and denies pain abdomen. ROS: Cardiovascular: No chest pain. Pulmonary: No shortness of breath Gastrointestinal: denies abdominal pain No nausea. No vomiting. says fluid has been clear Genitourinary: c/o mild pain while urinating. Denies blood in urine. All other negative except as mentioned in HPI Physical Examination: General Appearance: Comfortable, in no acute respiratory distress, co-operative . Vitals reviewed and noted as below Head; Atraumatic, normocephalic ENT: no ulcers no thrush. Tongue is midline. Oropharynx: no rash or ulcers. EYES: Pupils are equal, round and reactive to light accommodation. Eye muscles and extraocular movement intact. Sclera is anicteric. Neck; supple no lymphadenopathy, no thyromegaly or bruit Lungs: Normal respiratory rate/effort. Breath sounds bilateral equal and clear Heart: Normal rate. s1s2 normal. No rub or gallop. Extremities: no edema. No varicose veins. hx of left hand amputation Neurological: Patient is alert, awake and oriented to person, place and time. No focal deficit. Strength bilateral appropriate and equal Skin: Warm and dry. Normal turgor. No rash. Palpitation: Normal elasticity for age Abdomen: Abdomen is soft. Bowel sounds +. There is no abdominal tenderness, no guarding/rigidity or organomegaly Psych: normal insight and normal affect/mood MSK: no joint tenderness or swelling. Digits and nails normal, no deformity : kidney or bladder not palpable Access: PD catheter Labs/imaging reviewed. Past medical history, past surgical history, family history, social history, allergy reviewed and noted as below Family Hx: no hx of CKD. Non contributory Objective - Vital Signs/Intake and Output Vital Signs (last 24 hours): Temp Pulse Resp BP Pulse Ox 98.9 F 85 20 115/57 L 99 04/17/18 06:00 04/17/18 09:05 04/17/18 06:00 04/17/18 09:05 04/17/18 06:00 Intake and Output: 04/17/18 04/17/18 06:59 18:59 Intake Total 530 Output Total 1100 Balance -570 - Medications Medications: Current Medications Aspirin (Aspirin Chewable) 81 mg PO DAILY [facility] Last Admin: 04/17/18 09:06 Dose: 81 mg Atorvastatin Calcium (Lipitor) 10 mg PO DAILY [facility] Last Admin: 04/17/18 09:06 Dose: 10 mg Clonidine HCl (Catapres) 0.1 mg PO BID [facility] Last Admin: 04/17/18 09:04 Dose: 0.1 mg Meropenem/Sodium Chloride (Merrem Iv 500 Mg/Ns 50 Ml) 500 mg in 50 mls @ 12.5 mls/hr IVPB Q12 [facility]; Protocol Stop: 04/25/18 10:31 Last Admin: 04/17/18 09:06 Dose: 12.5 mls/hr Insulin Human Regular (Humulin R Med) 0 units SC ACHS [facility]; Protocol Last Admin: 04/17/18 11:32 Dose: Not Given Losartan Potassium (Cozaar) 100 mg PO DAILY [facility] Last Admin: 04/17/18 09:06 Dose: 100 mg Magnesium Oxide (Mag-Ox) 400 mg PO BID [facility] Last Admin: 04/17/18 09:06 Dose: 400 mg Metoprolol Tartrate (Lopressor) 50 mg PO BID [facility] Last Admin: 04/17/18 09:05 Dose: 50 mg Ticagrelor (Brilinta) 90 mg PO BID [facility] Last Admin: 04/17/18 09:05 Dose: 90 mg Vitamin B Complex/Vit C/Folic Acid (Nephro-Lay) 1 tab PO 0800 [facility] Last Admin: 04/17/18 09:06 Dose: 1 tab - Labs Labs: 04/17/18 06:00 04/17/18 06:00 PT 13.6 SECONDS (9.4-12.5) H 04/15/18 17:14 INR 1.19 04/15/18 17:14 APTT 26.2 Seconds (25.1-36.5) 04/15/18 17:14
--- NOTE | 2018-04-17 14:26 | PN ---
DATE: 04/17/2018 SUBJECTIVE: He is resting comfortably in bed. He slept fairly well last night. He is eating a little bit. I asked him to get out of bed to chair if possible. He is currently on Aranesp, aspirin, Brilinta, Catapres, Cozaar, insulin, Lipitor, Lopressor, magnesium, Merrem IV, Nephro-Lay, and Tylenol. He tells me the burning in the urine is a little bit better. PHYSICAL EXAMINATION: VITAL SIGNS: Temperature 98.9, pulse 85, blood pressure 115/57, respiratory rate 20, 99% O2 sat on room air. HEAD: Atraumatic, normocephalic. HEART: Regular rate with decreased breath sounds, but clear to auscultation. ABDOMEN: Soft, nontender. Positive bowel sounds. No guarding. No rebound. No CVA tenderness. EXTREMITIES: No edema. LABORATORY DATA: He has a white count that went from 13 up to 18.6. Hemoglobin dropped to 8.5, hematocrit 26.4, platelets of 217. Sodium 135, potassium 3.6, BUN 61, creatinine 7. He is on peritoneal dialysis. Last blood sugar was 166. Magnesium is 1.5, total bili is 0.4, AST is 30, ALT is 20, alk phos 115, total protein 6.3. Urine had many bacteria when he came in. Micro showed gram-negative rods in the urine. ASSESSMENT AND PLAN: He is being seen by Renal, Urology, Infectious Disease. We will continue with aggressive treatment and care. IV antibiotics. We will check the labs tomorrow. I asked him to get out of bed to chair daily. If he could do that, that would be great. He is here now for pyelonephritis, urinary tract infection. He has hypertension. He is on no dialysis. Trenton Purvis DO
--- NOTE | 2018-04-17 14:43 | CP.PCM.PCO ---
Physician Communication Note - Physician Communication Note Physician Communication Note: worsening leukocytosis urine sensitivities pending continue antibiotics
[2018-04-17 15:46] LABS: TOTAL PSA 12.4 ng/mL (< or = 4.0)
[2018-04-18] MEDS: Insulin Reg-MEDIUM-Coverage SC SCH ×4 (07:57→22:08)
[2018-04-18 08:16] LABS: HEMOGLOBIN 8.8 g/dL (14.0-18.0); MEAN CELL VOLUME 79.4 fl (80.0-105.0); MEAN CORPUSCULAR HEMOGLOBIN 25.5 pg (25.0-35.0); MEAN CORPUSCULAR HGB CONC 32.1 g/dl (31.0-37.0); MEAN PLATELET VOLUME 9.7 fl (7.0-11.0); RBC 3.45 10^6/uL (3.5-6.1); RED CELL DISTRIBUTION WIDTH 15.7 % (11.5-14.5); WHITE BLOOD COUNT 16.6 10^3/uL (4.5-11.0)
[2018-04-18 08:50] LABS: ALBUMIN 3.3 g/dL (3.0-4.8); CALCIUM 8.7 mg/dL (8.4-10.5)
[2018-04-18] MEDS: Magnesium Oxide 400 mg Tab UD PO SCH ×2 (09:03→17:30)
[2018-04-18] MEDS: Multivitamin Vitamin B Complex (Nephro-Vite) Tab PO SCH (09:03)
[2018-04-18] MEDS: cefTRIAXone 1 gm 1 GM/100 ML BAG IVPB SCH (10:05)
--- NOTE | 2018-04-18 13:04 | CP.PCM.PN ---
Subjective - Date & Time of Evaluation Date of Evaluation: 04/18/18 Time of Evaluation: 13:03 - Subjective Subjective: Nephrology Consultation Note: Assessment: Stable UTI/left pyelonephritis with sepsis, hypomagnesemia CAD (3 vessel disease) with NSTEMI s/p cardiac cath and stents 01/19/18 Diabetic chronic Kidney Disease (E11.22) Hypertensive Chronic Kidney Disease (I12.0) End stage renal disease (N18.6) dependence on PD Anemia (D64.9), Hyperphosphatemia (E83.39), Secondary Hyperparathyroidism (E21.1), HTN (I12.0) Systolic CHF with LVEF 45% Plan: seen on PD continue current nephrovite daily: continue same PRBC as needed for anemia. added POP s/p aransep 60 mcg dose on 04/16/18 phos stable BP control with meds as ordered. on ARB as losartan Glycemic control, Dialysis consistent diet Further work up/management as per primary team Dose meds/antibiotics (if needed) for ESRD status. Avoid fleets enema/magnesium based laxatives. avoid carafate/maalox/ Al or mag based antacid/laxatives ID, urology following ok from renal standpoint for d/c if abx can be given orally S: setill w/ dysuria Physical Examination: General Appearance: Comfortable, in no acute respiratory distress, co-operative . Vitals reviewed and noted as below Head; Atraumatic, normocephalic ENT: no ulcers no thrush. Tongue is midline. Oropharynx: no rash or ulcers. EYES: Pupils are equal, round and reactive to light accommodation. Eye muscles and extraocular movement intact. Sclera is anicteric. Neck; supple no lymphadenopathy, no thyromegaly or bruit Lungs: Normal respiratory rate/effort. Breath sounds bilateral equal and clear Heart: Normal rate. s1s2 normal. No rub or gallop. Extremities: no edema. No varicose veins. hx of left hand amputation Neurological: Patient is alert, awake and oriented to person, place and time. No focal deficit. Strength bilateral appropriate and equal Skin: Warm and dry. Normal turgor. No rash. Palpitation: Normal elasticity for age Abdomen: Abdomen is soft. Bowel sounds +. There is no abdominal tenderness, no guarding/rigidity or organomegaly Psych: normal insight and normal affect/mood MSK: no joint tenderness or swelling. Digits and nails normal, no deformity : kidney or bladder not palpable Access: PD catheter Labs/imaging reviewed. Past medical history, past surgical history, family history, social history, a llergy reviewed and noted as below Family Hx: no hx of CKD. Non contributory Objective - Vital Signs/Intake and Output Vital Signs (last 24 hours): Temp Pulse Resp BP Pulse Ox 98.1 F 97 H 20 153/89 H 97 04/18/18 06:52 04/18/18 09:04 04/18/18 06:52 04/18/18 09:04 04/18/18 06:52 Intake and Output: 04/18/18 04/18/18 06:59 18:59 Intake Total 290 Output Total 1000 Balance -710 - Medications Medications: Current Medications Aspirin (Aspirin Chewable) 81 mg PO DAILY [facility] Last Admin: 04/18/18 09:03 Dose: 81 mg Atorvastatin Calcium (Lipitor) 10 mg PO DAILY [facility] Last Admin: 04/18/18 09:03 Dose: 10 mg Clonidine HCl (Catapres) 0.1 mg PO BID [facility] Last Admin: 04/18/18 09:04 Dose: 0.1 mg Ceftriaxone Sodium (Rocephin 1 Gram Ivpb) 1 gm in 100 mls @ 100 mls/hr IVPB DAILY [facility]; Protocol Stop: 04/27/18 10:01 Last Admin: 04/18/18 10:05 Dose: 100 mls/hr Insulin Human Regular (Humulin R Med) 0 units SC ACHS [facility]; Protocol Last Admin: 04/18/18 12:42 Dose: 3 units Losartan Potassium (Cozaar) 100 mg PO DAILY [facility] Last Admin: 04/18/18 09:03 Dose: 100 mg Magnesium Oxide (Mag-Ox) 400 mg PO BID [facility] Last Admin: 04/18/18 09:03 Dose: 400 mg Metoprolol Tartrate (Lopressor) 50 mg PO BID [facility] Last Admin: 04/18/18 09:04 Dose: 50 mg Phenazopyridine HCl (Pyridium) 100 mg PO TID [facility] Last Admin: 04/18/18 09:03 Dose: 100 mg Ticagrelor (Brilinta) 90 mg PO BID [facility] Last Admin: 04/18/18 09:03 Dose: 90 mg Tramadol HCl (Ultram) 50 mg PO TID PRN PRN Reason: Pain, moderate (4-7) Vitamin B Complex/Vit C/Folic Acid (Nephro-Lay) 1 tab PO 0800 [facility]KIT Last Admin: 04/18/18 09:03 Dose: 1 tab - Labs Labs: 04/18/18 08:01 04/18/18 08:01 PT 13.6 SECONDS (9.4-12.5) H 04/15/18 17:14 INR 1.19 04/15/18 17:14 APTT 26.2 Seconds (25.1-36.5) 04/15/18 17:14
--- NOTE | 2018-04-18 13:24 | PN ---
DATE: 04/18/2018 SUBJECTIVE: The patient is in bed earlier, in no acute distress, nontoxic. No fevers or chills. PHYSICAL EXAMINATION: VITAL SIGNS: Temperature 98, blood pressure 153/60, respiratory rate 18. HEENT: Examination of HEENT is unremarkable. NECK: Supple. LUNGS: Decreased breath sounds. HEART: Normal S1, S2. ABDOMEN: Soft, nontender. LABORATORY DATA: Laboratory examination reveals the patient's white count is 16,600, hemoglobin of 8, platelets of 237. Coagulation is noted. Chemistries are noted. BUN 60, creatinine 7.3. WBCs are noted. The peritoneal fluid shows 25 wbc's and microbiology reveals the blood cultures are negative and the urine culture is E. Coli that is pansensitive including ampicillin sensitive. ASSESSMENT AND PLAN: This is a 72-year-old male with sepsis with a left-sided pyelonephritis with E-coli in the urine as the source. No evidence of obstruction or abscess on CT scan. We will follow the WBCs. Once it is improving, maybe able to switch to p.o. antibiotics. At this time we will discontinue the meropenem and switch to IV ceftriaxone and we will follow closely with you and case was discussed with Dr. Trenton Purvis. Joey Begum MD
--- NOTE | 2018-04-18 15:25 | PN ---
DATE: 04/18/2018 SUBJECTIVE: He is sitting up in bed. He is having some burning with his urination. He is on Pyridium, I added some tramadol, he is also on aspirin, Brilinta, Catapres, Cozaar, insulin coverage, potassium replacement, Lipitor, Lopressor, magnesium oxide, and magnesium replacement, vitamins for his peritoneal dialysis and Ultram now for pain. He is a little bit better with eating, but he is having pain when urinating. PHYSICAL EXAMINATION: VITAL SIGNS: She has a 98.1 temperature, 97 pulse, 153/89 blood pressure, 20 respiratory rate and 97% O2 sat on room air. HEENT: Head is atraumatic and normocephalic. HEART: Regular rate. LUNGS: Decreased breath sounds, but clear. ABDOMEN: Soft. No CVA tenderness. EXTREMITIES: Have no edema. LABORATORY DATA: He has a 16.6 white count still elevated, was as high as 18.6 starting to come down, 8.8 hemoglobin, 27.4 hematocrit and 237 platelets. He has 135 sodium, potassium 3.3 I have replaced potassium, BUN is 60 and creatinine 7.3 on peritoneal dialysis, sugar is 161, calcium 8.7, total bili is 0.5, AST is 35, ALT is 29, alk phos 100 and total protein 6.6. he had E. coli in the urine, it is very sensitive. Still the white count is elevated. We will continue with IV antibiotics as per Infectious Disease. He tramadol for the pain in the urine. He is also on Pyridium already, his regular medications potassium replacement. Check his labs tomorrow. Hopefully, when the white count comes down we can discharge him and change into tablets as per Infectious Disease. His white count is still quite high. Trenton Purvis DO MTDD
[2018-04-19 07:46] LABS: HEMOGLOBIN 8.2 g/dL (14.0-18.0); MEAN CELL VOLUME 78.9 fl (80.0-105.0); MEAN CORPUSCULAR HEMOGLOBIN 25.8 pg (25.0-35.0); MEAN CORPUSCULAR HGB CONC 32.7 g/dl (31.0-37.0); MEAN PLATELET VOLUME 9.5 fl (7.0-11.0); RBC 3.18 10^6/uL (3.5-6.1); RED CELL DISTRIBUTION WIDTH 15.6 % (11.5-14.5); WHITE BLOOD COUNT 11.3 10^3/uL (4.5-11.0)
[2018-04-19 08:34] LABS: ALB/GLOB RATIO 0.9 (1.1-1.8); ALBUMIN 3.2 g/dL (3.0-4.8); CALCIUM 8.5 mg/dL (8.4-10.5)
[2018-04-19] MEDS: Insulin Reg-MEDIUM-Coverage SC SCH ×4 (08:42→21:45)
[2018-04-19] MEDS: Multivitamin Vitamin B Complex (Nephro-Vite) Tab PO SCH (08:42)
[2018-04-19] MEDS: Magnesium Oxide 400 mg Tab UD PO SCH ×2 (09:23→17:23)
[2018-04-19] MEDS: cefTRIAXone 1 gm 1 GM/100 ML BAG IVPB SCH (09:25)
[2018-04-19] MEDS ORDERED: Vancomycin 1gm in NS 250ml 1 GM/250 ML BAG IVPB STA (10:39)
[2018-04-19] MEDS ORDERED: Alum-Mag Hydrox-Simethicone Susp (30 mL) PO PRN (11:23)
[2018-04-19] MEDS: Cefepime 1gm in NS 100ml 1 GM/100 ML BAG IVPB SCH (12:20)
--- NOTE | 2018-04-19 14:31 | PN ---
DATE: 04/19/2018 SUBJECTIVE: The patient is seen earlier today in room 365 and he is comfortable, doing well. Later, this morning, I was called that the patient had a temperature of over 100. PHYSICAL EXAMINATION VITAL SIGNS: Temperature earlier was 99.3 and a verbal , I was called by the nurse that temperature is over 100.8 with heart rate of 102, blood pressure is 150/80, and respiratory rate of 20. HEENT: Unremarkable. NECK: Supple. LUNGS: Decreased breath sounds. HEART: Normal S1, S2. ABDOMEN: Soft, nontender. LABORATORY DATA: Reveals white count of 11,300, hemoglobin of 8, platelets of 224. Coagulation is noted. Chemistries reveals BUN of 57, creatinine of 6.7. Urinalysis is noted. Peritoneal fluid is noted to have 25 wbc's and influenza is negative. Review of orders reveals the patient to be on ceftriaxone. DIAGNOSTIC DATA: The patient's last chest x-ray on 04/15/2018 is noted negative. We will order a chest x-ray today. ASSESSMENT AND PLAN: A 72-year-old male who is admitted with sepsis, left-sided pyelonephritis with Escherichia coli in the urine as a source, currie-sensitive, on ceftriaxone, negative blood cultures. The patient already had a CAT scan of the abdomen and pelvis which revealed perinephric stranding around the left kidney consistent with pyelonephritis and the patient also had a PSA which was elevated. The patient with a creatinine of 7.1 and has had elevated creatinine since January. Now, with new fever and tachycardia. We will discontinue ceftriaxone and start the patient on one dose of vancomycin and Maxipime. Source of the fever to be determined and repeating blood cultures, urine cultures, urinalysis, procalcitonin, chest x-ray, nasal methicillin-resistant Staphylococcus aureus screen, and working for nosocomial healthcare-associated infection versus a new urinary tract infection versus a new intra-abdominal pathology. We will adjust antibiotics to renal function. We will also order Dopplers of the lower extremity to rule out deep venous thrombosis and we will follow closely with you. Joey Begum MD [facility] # [id number]
--- NOTE | 2018-04-19 14:54 | RAD ---
Date of service: 04/19/2018 HISTORY: r/o hcap COMPARISON: 04/15/2018 TECHNIQUE: Chest PA and lateral FINDINGS: LUNGS: No active pulmonary disease. PLEURA: No significant pleural effusion identified. No pneumothorax apparent. CARDIOVASCULAR: No aortic atherosclerotic calcification present. Normal cardiac size. No pulmonary vascular congestion. OSSEOUS STRUCTURES: No significant abnormalities. VISUALIZED UPPER ABDOMEN: Normal. OTHER FINDINGS: None. IMPRESSION: No active disease.
[2018-04-19 15:49] LABS: PH,URINE 7.5 (4.7-8.0); URINE BILIRUBIN NEGATIVE (NEGATIVE); URINE BLOOD MODERATE (NEGATIVE); URINE GLUCOSE (UA) 250 mg/dL (NEGATIVE); URINE LEUKOCYTE ESTERASE TRACE Leu/uL (NEGATIVE); URINE PROTEIN 100 mg/dL (<30 mg/dL); URINE UROBILINOGEN 0.2 E.U./dL (<1 E.U./dL)
[2018-04-19 15:50] LABS: URINE APPEARANCE SLIGHT-CLOUDY (CLEAR); URINE COLOR YELLOW (YELLOW)
[2018-04-19 16:00] LABS: URINE BACTERIA TRACE (NEG)
--- NOTE | 2018-04-19 17:25 | PN ---
DATE: 04/19/2018 SUBJECTIVE: He has had multiple issues in the past 24 hours. He has some nausea, vomiting. He has had elevated temperatures. He has no appetite. He is becoming a little bit anemic. He is currently on aspirin, Brilinta, Catapres, Cozaar, insulin,Lipitor, Lopressor, Maalox, magnesium oxide, Maxipime IV, Nephro-Lay, potassium replacement, Pyridium, Tylenol, Ultram, vancomycin and Zofran. He is resting comfortably in bed. He is not as comfortable as he has been in the past few days. He is actually mildly uncomfortable. PHYSICAL EXAMINATION: VITAL SIGNS: He has 100.9 temp, he has 102 pulse, 159/86 blood pressure, 20 respiratory rate, 98% O2 sat on room air. HEENT: Head is atraumatic, normocephalic. HEART: Regular rate. LUNGS: Decreased breath sounds. ABDOMEN: Soft, nontender. EXTREMITIES: No edema. LABORATORY DATA: He has a 11.3 white count still better than when he came in, 8.2 hemoglobin; I discussed that if it falls below 8 he will get a transfusion; 25.1 hematocrit with 224 platelets. He has 133 sodium, potassium 3.4; I am replacing his potassium, BUN is 57, creatinine 6.7; he is on peritoneal dialysis. GFR is 8, sugar is 235, calcium is 8.5, total bili is 0.68. AST is 33, ALT is alk phos 110, total protein 6.5, albumin is 3.2. Many bacteria in the urine. He had E. coli in the urine, he is being re-cultured up by Infectious Disease. ASSESSMENT AND PLAN: He is being seen by Renal, Infectious Disease, Urology. We will continue aggressive treatment and care, re-culture, IV antibiotics. He was made n.p.o. Now he is up to clears. If he gets well, we will get him back up to eating regularly by dinner time, I am hoping. He is uncomfortable. Hoping the new antibiotic changes will help and we will see Tylenol for his temperatures and Mylanta for his indigestion. We will keep a very close eye on him. Trenton Purvis DO [facility] # [id number] [facility]
[2018-04-20 06:49] LABS: HEMOGLOBIN 8.2 g/dL (14.0-18.0); MEAN CELL VOLUME 80.5 fl (80.0-105.0); MEAN CORPUSCULAR HGB CONC 31.1 g/dl (31.0-37.0); MEAN PLATELET VOLUME 9.6 fl (7.0-11.0); RBC 3.28 10^6/uL (3.5-6.1); RED CELL DISTRIBUTION WIDTH 15.8 % (11.5-14.5); WHITE BLOOD COUNT 12.3 10^3/uL (4.5-11.0)
[2018-04-20 07:00] LABS: ALB/GLOB RATIO 0.9 (1.1-1.8); ALBUMIN 3.2 g/dL (3.0-4.8); CALCIUM 8.5 mg/dL (8.4-10.5)
[2018-04-20] MEDS: Insulin Reg-MEDIUM-Coverage SC SCH ×4 (08:21→21:34)
[2018-04-20] MEDS: Multivitamin Vitamin B Complex (Nephro-Vite) Tab PO SCH (08:21)
--- NOTE | 2018-04-20 09:24 | US ---
HISTORY: Leg pain and swelling. Evaluate for DVT PHYSICIAN(S): Syed So MD. TECHNIQUE: Duplex sonography and color-flow Doppler with graded compression were used to evaluate the deep venous systems of both lower extremities. FINDINGS: The visualized deep venous systems of both lower extremities are sonographically normal and compressible. Normal wave forms and augmentation are seen. There is no sonographic evidence for deep venous thrombosis in the visualized segments of both lower extremities. IMPRESSION: No sonographic evidence for deep venous thrombosis in the visualized segments of both lower extremities.
[2018-04-20] MEDS: Magnesium Oxide 400 mg Tab UD PO SCH ×2 (11:37→18:55)
[2018-04-20] MEDS: Cefepime 1gm in NS 100ml 1 GM/100 ML BAG IVPB SCH (11:43)
--- NOTE | 2018-04-20 11:47 | PN ---
DATE: 04/20/2018 SUBJECTIVE: He is resting comfortably in bed. He still has no appetite. The urination is much better, maybe 60% better, less discomfort. He is being seen by Infectious Disease, Renal and Urology. He 100% yet. PHYSICAL EXAMINATION: VITAL SIGNS: A 98.5 temperature, 90 pulse, 167/87 blood pressure, 20 respiratory rate and 98% O2 sat on room air. HEENT: Head is atraumatic and normocephalic. HEART: Regular rate. LUNGS: Decreased breath sounds, but clear. ABDOMEN: Soft and nontender. Positive bowel sounds. EXTREMITIES: No edema. MEDICATIONS: He is on aspirin, Brilinta, Catapres, Cozaar, insulin, Lipitor, Lopressor, Maalox, magnesium oxide, Maxipime IV, Nephro-Lay, Pyridium, Tylenol, Ultram and Zofran. LABORATORY DATA: He has a 12.3 white count little bit up from 11.3, 8.2 hemoglobin, 26.4 hematocrit and 239 platelets. A 134 sodium, potassium 3.6, BUN 58, creatinine 6.4, GFR is 9, sugar is 170, calcium 8.5, total bilirubin is 0.5, AST is 40, ALT is 32, alkaline phosphatase 88 and total protein 6.6. He is on peritoneal dialysis. He had E. coli. He is being re-cultured, being seen by Infectious Disease, Renal and . Continue aggressive treatment and care. He had few things going on UTI, pyelonephritis, anemia and hypertension. Trenton Purvis DO MTDD
--- NOTE | 2018-04-20 12:21 | CP.PCM.PN ---
Subjective - Date & Time of Evaluation Date of Evaluation: 04/20/18 Time of Evaluation: 09:35 - Subjective Subjective: No fevers this morning, no nausea but still struggles with appetite, no diarrhea. Objective - Vital Signs/Intake and Output Vital Signs (last 24 hours): Temp Pulse Resp BP Pulse Ox 98.9 F 100 H 20 150/82 98 04/19/18 17:02 04/19/18 17:24 04/19/18 17:02 04/19/18 17:24 04/19/18 17:02 Intake and Output: 04/19/18 04/20/18 18:59 06:59 Intake Total 5940 Output Total 3800 Balance 2140 - Medications Medications: Current Medications Acetaminophen (Tylenol 325mg Tab) 650 mg PO Q6H PRN PRN Reason: Fever >100.4 F Al Hydrox/Mg Hydrox/Simethicone (Maalox Plus 30 Ml) 30 ml PO DAILY PRN PRN Reason: Indigestion / Heartburn Last Admin: 04/19/18 12:19 Dose: 30 ml Aspirin (Aspirin Chewable) 81 mg PO DAILY [facility] Last Admin: 04/19/18 09:24 Dose: 81 mg Atorvastatin Calcium (Lipitor) 10 mg PO DAILY [facility] Last Admin: 04/19/18 09:23 Dose: 10 mg Clonidine HCl (Catapres) 0.1 mg PO BID [facility] Last Admin: 04/19/18 17:24 Dose: 0.1 mg Cefepime HCl (Maxipime 1gm) 1 gm in 100 mls @ 25 mls/hr IVPB Q24H [facility]; Protocol Stop: 04/28/18 10:46 Last Admin: 04/19/18 12:20 Dose: 25 mls/hr Insulin Human Regular (Humulin R Med) 0 units SC ACHS [facility]; Protocol Last Admin: 04/19/18 17:22 Dose: 1 units Losartan Potassium (Cozaar) 100 mg PO DAILY [facility] Last Admin: 04/19/18 09:24 Dose: 100 mg Magnesium Oxide (Mag-Ox) 400 mg PO BID [facility] Last Admin: 04/19/18 17:23 Dose: 400 mg Metoprolol Tartrate (Lopressor) 50 mg PO BID [facility] Last Admin: 04/19/18 17:24 Dose: 50 mg Ondansetron HCl (Zofran Inj) 4 mg IVP Q6H PRN PRN Reason: Nausea/Vomiting Phenazopyridine HCl (Pyridium) 100 mg PO TID [facility] Last Admin: 04/19/18 17:25 Dose: 100 mg Ticagrelor (Brilinta) 90 mg PO BID [facility] Last Admin: 04/19/18 17:24 Dose: 90 mg Tramadol HCl (Ultram) 50 mg PO TID PRN PRN Reason: Pain, moderate (4-7) Last Admin: 04/19/18 03:15 Dose: 50 mg Vitamin B Complex/Vit C/Folic Acid (Nephro-Lay) 1 tab PO 0800 [facility] Last Admin: 04/19/18 08:42 Dose: 1 tab - Labs Labs: 04/19/18 07:42 04/19/18 07:42 PT 13.6 SECONDS (9.4-12.5) H 04/15/18 17:14 INR 1.19 04/15/18 17:14 APTT 26.2 Seconds (25.1-36.5) 04/15/18 17:14 - Constitutional Appears: Non-toxic, No Acute Distress, Chronically Ill - Head Exam Head Exam: NORMAL INSPECTION - Neck Exam Neck Exam: absent: Meningismus - Respiratory Exam Respiratory Exam: Decreased Breath Sounds - Cardiovascular Exam Cardiovascular Exam: +S1, +S2 - GI/Abdominal Exam GI & Abdominal Exam: Soft. absent: Tenderness Assessment and Plan - Assessment and Plan (Free Text) Plan: Assessment Sepsis due to left sided pyelonephritis with E. coli, with new onset fevers and SIRS, R/O new source of sepsis DM ESRD on PD chronic CHF Plan continue Vancomycin and Cefepime day 2 pending repeat urine cx; repeat blood cx are negative and CXR PA-L does not show infiltrates will continue to monitor clinically, trend WBC count, trend fever curve discussed with Dr. Purvis
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
--- NOTE | 2018-04-20 20:42 | CP.PCM.PN ---
Subjective - Date & Time of Evaluation Date of Evaluation: 04/20/18 Time of Evaluation: 20:37 - Subjective Subjective: Nephrology Consultation Note: Assessment: Stable UTI/left pyelonephritis with sepsis, hypomagnesemia CAD (3 vessel disease) with NSTEMI s/p cardiac cath and stents 01/19/18 Diabetic chronic Kidney Disease (E11.22) Hypertensive Chronic Kidney Disease (I12.0) End stage renal disease (N18.6) dependence on PD Anemia (D64.9), Hyperphosphatemia (E83.39), Secondary Hyperparathyroidism (E21.1), HTN (I12.0) Systolic CHF with LVEF 45% Plan: seen on PD continue current treatment nephrovite daily PRBC as needed for anemia. added POP s/p aransep 60 mcg dose on 04/16/18 phos stable BP control with meds as ordered. on ARB as losartan Glycemic control, Dialysis consistent diet Further work up/management as per primary team ok from renal standpoint for d/c if abx can be given orally Physical Examination: General Appearance: Comfortable, in no acute respiratory distress, co-operative . Vitals reviewed and noted as below Head; Atraumatic, normocephalic ENT: no ulcers no thrush. EYES: Eye muscles and extraocular movement intact. Sclera is anicteric. Neck; supple no lymphadenopathy, no thyromegaly or bruit Lungs: Normal respiratory rate/effort. Breath sounds bilateral equal and clear Heart: Normal rate. s1s2 normal. No rub or gallop. Extremities: no edema. No varicose veins. hx of left hand amputation Neurological: Patient is alert, awake and oriented to person, place and time. No focal deficit. Strength bilateral appropriate and equal Skin: Warm and dry. Normal turgor. Abdomen: Abdomen is soft. Bowel sounds +. There is no abdominal tenderness, no guarding/rigidity or organomegaly Psych: normal insight and normal affect/mood MSK: no joint tenderness or swelling. Access: PD catheter Objective - Vital Signs/Intake and Output Vital Signs (last 24 hours): Temp Pulse Resp BP Pulse Ox 98.8 F 75 20 152/80 H 96 04/20/18 16:21 04/20/18 19:01 04/20/18 16:21 04/20/18 18:56 04/20/18 16:21 - Medications Medications: Current Medications Acetaminophen (Tylenol 325mg Tab) 650 mg PO Q6H PRN PRN Reason: Fever >100.4 F Al Hydrox/Mg Hydrox/Simethicone (Maalox Plus 30 Ml) 30 ml PO DAILY PRN PRN Reason: Indigestion / Heartburn Last Admin: 04/19/18 12:19 Dose: 30 ml Aspirin (Aspirin Chewable) 81 mg PO DAILY [facility] Last Admin: 04/20/18 11:36 Dose: 81 mg Atorvastatin Calcium (Lipitor) 10 mg PO DAILY [facility] Last Admin: 04/20/18 11:43 Dose: 10 mg Clonidine HCl (Catapres) 0.1 mg PO BID [facility] Last Admin: 04/20/18 18:56 Dose: 0.1 mg Cefepime HCl (Maxipime 1gm) 1 gm in 100 mls @ 25 mls/hr IVPB Q24H [facility]; Protocol Stop: 04/28/18 10:46 Last Admin: 04/20/18 11:43 Dose: 25 mls/hr Insulin Human Regular (Humulin R Med) 0 units SC ACHS [facility]; Protocol Last Admin: 04/20/18 17:10 Dose: Not Given Losartan Potassium (Cozaar) 100 mg PO DAILY [facility] Last Admin: 04/20/18 11:37 Dose: 100 mg Magnesium Oxide (Mag-Ox) 400 mg PO BID [facility] Last Admin: 04/20/18 18:55 Dose: 400 mg Metoprolol Tartrate (Lopressor) 50 mg PO BID [facility] Last Admin: 04/20/18 19:01 Dose: 50 mg Ondansetron HCl (Zofran Inj) 4 mg IVP Q6H PRN PRN Reason: Nausea/Vomiting Phenazopyridine HCl (Pyridium) 100 mg PO TID [facility] Last Admin: 04/20/18 18:56 Dose: 100 mg Ticagrelor (Brilinta) 90 mg PO BID [facility] Last Admin: 04/20/18 18:55 Dose: 90 mg Tramadol HCl (Ultram) 50 mg PO TID PRN PRN Reason: Pain, moderate (4-7) Last Admin: 04/20/18 11:38 Dose: 50 mg Vitamin B Complex/Vit C/Folic Acid (Nephro-Lay) 1 tab PO 0800 [facility] Last Admin: 04/20/18 08:21 Dose: 1 tab - Labs Labs: 04/20/18 06:00 04/20/18 06:00 PT 13.6 SECONDS (9.4-12.5) H 04/15/18 17:14 INR 1.19 04/15/18 17:14 APTT 26.2 Seconds (25.1-36.5) 04/15/18 17:14
[2018-04-21 06:11] LABS: HEMOGLOBIN 7.6 g/dL (14.0-18.0); MEAN CELL VOLUME 79.9 fl (80.0-105.0); MEAN CORPUSCULAR HEMOGLOBIN 25.9 pg (25.0-35.0); MEAN CORPUSCULAR HGB CONC 32.3 g/dl (31.0-37.0); MEAN PLATELET VOLUME 9.1 fl (7.0-11.0); RBC 2.94 10^6/uL (3.5-6.1); RED CELL DISTRIBUTION WIDTH 15.8 % (11.5-14.5); WHITE BLOOD COUNT 11.2 10^3/uL (4.5-11.0)
[2018-04-21 07:13] LABS: ALB/GLOB RATIO 0.9 (1.1-1.8); ALBUMIN 2.9 g/dL (3.0-4.8); CALCIUM 7.9 mg/dL (8.4-10.5)
[2018-04-21 09:16] LABS: IRON 19 ug/dL (45-180)
[2018-04-21] MEDS: Insulin Reg-MEDIUM-Coverage SC SCH ×4 (09:18→21:47)
[2018-04-21 09:25] LABS: % IRON SATURATION 8 % (20-55); TOTAL IRON BINDING CAPACITY 221 ug/dL (261-462)
[2018-04-21] MEDS: Multivitamin Vitamin B Complex (Nephro-Vite) Tab PO SCH (09:25)
[2018-04-21] MEDS ORDERED: Lidocaine/Prilocaine 2.5%-2.5% Cream(30 gm) TOP ONE (09:58)
[2018-04-21] MEDS ORDERED: Darbepoetin Alfa 100 mcg/ml Inj SC SCH (10:00)
--- NOTE | 2018-04-21 10:17 | CP.PCM.PCO ---
Physician Communication Note - Physician Communication Note Physician Communication Note: blood today, hypokalemic-replaced, decreased iron stores supplemented
--- NOTE | 2018-04-21 11:56 | PN ---
DATE: 04/21/2018 SUBJECTIVE: He is sitting up in bed this morning. He is quite comfortable. He tells me he is starting to feel better. He has less pain when he urinates, less discomfort. He has got a better appetite. I think this is the first day that he really has turned the corner and is telling me that he is feeling a little bit better. MEDICATIONS: He is currently on aspirin, Brilinta Catapres, Cozaar, insulin, Lipitor, Lopressor, magnesium, Maxipime, Nephro-Lay, Pyridium, Tylenol, Ultram. PHYSICAL EXAMINATION: VITAL SIGNS: He has 98.8 temperature, 75 pulse, 152/80 blood pressure, 20 respiratory rate, 96% O2 sat on room air. HEAD: Atraumatic, normocephalic. HEART: Regular rate. LUNGS: Decreased breath sounds, but clear. ABDOMEN: Soft, nontender. Positive bowel sounds. EXTREMITIES: No edema. LABORATORY DATA: He has a 132 sodium; potassium 3.1, we will replace the potassium; BUN is 55; creatinine 6.5. He is on peritoneal dialysis. Last blood sugar was 267. He has a 7.9 calcium, 0.6 bili, AST is 39, ALT is 40, alk phos 95, total protein is 5.9. White count 7.2, it is the best it has been, 7.6 hemoglobin, 23.5 hematocrit with 198 platelets. ASSESSMENT AND PLAN: I am going to transfuse him 2 units of packed red blood cells because he became anemic. I discussed this with Infectious Disease. He needs to be on IV antibiotics for a few more days. We will check his labs tomorrow. Replace his potassium and transfuse. Trenton Purvis DO
[2018-04-21] MEDS ORDERED: Potassium Chloride 20 mEq ER Tab PO ONE (12:00)
--- NOTE | 2018-04-21 12:18 | CP.PCM.PN ---
<Pa Pryor - Last Filed: 04/21/18 14:30> Subjective - Date & Time of Evaluation Date of Evaluation: 04/21/18 Time of Evaluation: 07:45 - Subjective Subjective: PGY6 GI Fellow Progress Note Patient seen and examined bedside this morning. The patient admits to one episode of nausea and vomiting following eating meat last night for dinner. Has minimal appetite and forced himself to eat, felt nauseated and regurgitated. No episodes this morning with breakfast. Feels better overall today. 12 system ROS performed and negative except where stated Objective - Vital Signs/Intake and Output Vital Signs (last 24 hours): Temp Pulse Resp BP Pulse Ox 98.9 F 78 20 130/78 95 04/21/18 08:50 04/21/18 11:45 04/21/18 08:50 04/21/18 11:45 04/21/18 08:50 Intake and Output: 04/21/18 04/21/18 06:59 18:59 Intake Total 1640 Output Total 2300 Balance -660 - Medications Medications: Current Medications Acetaminophen (Tylenol 325mg Tab) 650 mg PO Q6H PRN PRN Reason: Fever >100.4 F Aspirin (Aspirin Chewable) 81 mg PO DAILY [facility] Last Admin: 04/21/18 11:45 Dose: 81 mg Atorvastatin Calcium (Lipitor) 10 mg PO DAILY [facility] Last Admin: 04/21/18 11:47 Dose: 10 mg Clonidine HCl (Catapres) 0.1 mg PO BID [facility] Last Admin: 04/21/18 11:45 Dose: 0.1 mg Darbepoetin Jcarlos (Aranesp) 100 mcg SC QWK [facility] Ferrous Gluconate (Fergon) 324 mg PO TID [facility] Last Admin: 04/21/18 11:45 Dose: 324 mg Furosemide (Lasix) 80 mg PO DAILY [facility] Last Admin: 04/21/18 11:44 Dose: 80 mg Cefepime HCl (Maxipime 1gm) 1 gm in 100 mls @ 25 mls/hr IVPB Q24H [facility]; Protocol Stop: 04/28/18 10:46 Last Admin: 04/20/18 11:43 Dose: 25 mls/hr Insulin Human Regular (Humulin R Med) 0 units SC ACHS [facility]; Protocol Last Admin: 04/21/18 11:46 Dose: 1 units Losartan Potassium (Cozaar) 100 mg PO DAILY [facility] Last Admin: 04/21/18 11:43 Dose: 100 mg Metoprolol Tartrate (Lopressor) 100 mg PO BID [facility] Last Admin: 04/21/18 11:44 Dose: 100 mg Ondansetron HCl (Zofran Inj) 4 mg IVP Q6H PRN PRN Reason: Nausea/Vomiting Ticagrelor (Brilinta) 90 mg PO BID [facility] Last Admin: 04/21/18 11:44 Dose: 90 mg Tramadol HCl (Ultram) 50 mg PO TID PRN PRN Reason: Pain, moderate (4-7) Last Admin: 04/20/18 11:38 Dose: 50 mg Vitamin B Complex/Vit C/Folic Acid (Nephro-Lay) 1 tab PO 0800 [facility] Last Admin: 04/21/18 09:25 Dose: 1 tab - Labs Labs: 04/21/18 05:30 04/21/18 05:30 PT 13.6 SECONDS (9.4-12.5) H 04/15/18 17:14 INR 1.19 04/15/18 17:14 APTT 26.2 Seconds (25.1-36.5) 04/15/18 17:14 - Constitutional Appears: Non-toxic, No Acute Distress - Eye Exam Eye Exam: EOMI, PERRL - ENT Exam ENT Exam: Mucous Membranes Moist - Respiratory Exam Respiratory Exam: Clear to Ausculation Bilateral. absent: Rales, Rhonchi, Wheezes - Cardiovascular Exam Cardiovascular Exam: RRR, +S1, +S2 - GI/Abdominal Exam GI & Abdominal Exam: Soft, Normal Bowel Sounds. absent: Distended, Firm, Guarding, Tenderness, Organomegaly - Extremities Exam Extremities Exam: absent: Pedal Edema Additional comments: left hand amputated - Neurological Exam Neurological Exam: Alert, Awake, Oriented x3 - Psychiatric Exam Psychiatric exam: Normal Affect, Normal Mood - Skin Skin Exam: Dry, Warm Assessment and Plan - Assessment and Plan (Free Text) Assessment: Patient is a 72yo male with PMHx significant for ESRD on PD 4x/day, CAD s/p PCI on ASA/Brilinta, DM, CHF who presented to the ED with dysuria and fever/chills -Pyelonephritis -Uncontrolled diabetes -Anemia of chronic illness -Nausea and vomiting with possible underlying gastroparesis -CAD on ASA/Brilinta -ESRD on PD Plan: -Continue current therapy for pyelonephritis - on Cefepime -One episode of nausea following meat ingestion - recommend scaling back diet to renal diet, 6 small meals, low fat/fiber -Tight glycemic control stressed -Can consider use of motility agent sparingly (Reglan) however explained potent ial for neurologic side effects (EPS) with use and patient understands risk; would not recommend fpc use -Zofran PRN -Outpatient endocrinology evaluation -No plan for endoscopic intervention at this time - recommend outpatient follow up and treatment once acute medical issues resolve <French Cardoso - Last Filed: 04/21/18 15:45> Objective - Vital Signs/Intake and Output Vital Signs (last 24 hours): Temp Pulse Resp BP Pulse Ox 98.9 F 78 20 130/78 95 04/21/18 08:50 04/21/18 11:45 04/21/18 08:50 04/21/18 11:45 04/21/18 08:50 Intake and Output: 04/21/18 04/21/18 06:59 18:59 Intake Total 1640 Output Total 2300 Balance -660 - Medications Medications: Current Medications Acetaminophen (Tylenol 325mg Tab) 650 mg PO Q6H PRN PRN Reason: Fever >100.4 F Aspirin (Aspirin Chewable) 81 mg PO DAILY [facility] Last Admin: 04/21/18 11:45 Dose: 81 mg Atorvastatin Calcium (Lipitor) 10 mg PO DAILY [facility] Last Admin: 04/21/18 11:47 Dose: 10 mg Clonidine HCl (Catapres) 0.1 mg PO BID [facility] Last Admin: 04/21/18 11:45 Dose: 0.1 mg Darbepoetin Jcarlos (Aranesp) 100 mcg SC QWK [facility] Last Admin: 04/21/18 14:10 Dose: 100 mcg Ferrous Gluconate (Fergon) 324 mg PO TID [facility] Last Admin: 04/21/18 11:45 Dose: 324 mg Furosemide (Lasix) 80 mg PO DAILY [facility] Last Admin: 04/21/18 11:44 Dose: 80 mg Cefepime HCl (Maxipime 1gm) 1 gm in 100 mls @ 25 mls/hr IVPB Q24H [facility]; Protocol Stop: 04/28/18 10:46 Last Admin: 04/20/18 11:43 Dose: 25 mls/hr Insulin Human Regular (Humulin R Med) 0 units SC ACHS [facility]; Protocol Last Admin: 04/21/18 11:46 Dose: 1 units Losartan Potassium (Cozaar) 100 mg PO DAILY [facility] Last Admin: 04/21/18 11:43 Dose: 100 mg Metoprolol Tartrate (Lopressor) 100 mg PO BID [facility] Last Admin: 04/21/18 11:44 Dose: 100 mg Ondansetron HCl (Zofran Inj) 4 mg IVP Q6H PRN PRN Reason: Nausea/Vomiting Potassium Chloride (K-Dur 20 Meq Er Tab) 20 meq PO BRK [facility] Ticagrelor (Brilinta) 90 mg PO BID [facility] Last Admin: 04/21/18 11:44 Dose: 90 mg Tramadol HCl (Ultram) 50 mg PO TID PRN PRN Reason: Pain, moderate (4-7) Last Admin: 04/20/18 11:38 Dose: 50 mg Vitamin B Complex/Vit C/Folic Acid (Nephro-Lay) 1 tab PO 0800 [facility] Last Admin: 04/21/18 09:25 Dose: 1 tab - Labs Labs: 04/21/18 05:30 04/21/18 05:30 PT 13.6 SECONDS (9.4-12.5) H 04/15/18 17:14 INR 1.19 04/15/18 17:14 APTT 26.2 Seconds (25.1-36.5) 04/15/18 17:14 Attending/Attestation - Attestation I have fully participated in the care of the patient.: Yes I have reviewed all pertinent clinical information, including history, physical exam and plan: Yes Notes (Text): 04/21/18 15:43 ESRD on PD CAD on Brilinta DM Sepsis, pyelonephritis Nausea - Diet as tolerated - Continue with antibiotic therapy as per ID - Maintain strict glycemic control - Anti-emetic therapy PRN - No planned GI intervention at this time, will sign off case. Patient would benefit from outpatient follow up and consideration of endoscopic evaluation when safely able to come off Brilinta therapy. Please reconsult as necessary, thank you.
--- NOTE | 2018-04-21 12:19 | CP.PCM.PN ---
Subjective - Date & Time of Evaluation Date of Evaluation: 04/21/18 Time of Evaluation: 12:17 - Subjective Subjective: Nephrology Consultation Note: Assessment: Stable UTI/left pyelonephritis with sepsis, hypomagnesemia CAD (3 vessel disease) with NSTEMI s/p cardiac cath and stents 01/19/18 Diabetic chronic Kidney Disease (E11.22) Hypertensive Chronic Kidney Disease (I12.0) End stage renal disease (N18.6) dependence on PD Anemia (D64.9), Hyperphosphatemia (E83.39), Secondary Hyperparathyroidism (E21.1), HTN (I12.0) Systolic CHF with LVEF 45% hyponatremia hypokalemia Plan: pt on PD with 2.5% 2000 mL exchange 4 times a day manually (4-5 hrs dwell time). pt will continue with his PD as per outpt regimen, reinforced to do 2 L exchange as UF otherwise not optimal. nephrovite daily: continue same PRBC as needed for anemia. added ESAs last Hb 7.6 last phos level 5.2 acceptable. not on binders BP control with meds as ordered. on ARB as losartan Glycemic control, Dialysis consistent diet Further work up/management as per primary team Dose meds/antibiotics (if needed) for ESRD status. Avoid fleets enema/magnesium based laxatives. avoid carafate/maalox/ Al or mag based antacid/laxatives ID, urology following supplement lytes as needed started lasix. d/c pyridium as contrandicated in esrd Thanks for allowing me to participate in care of your patient. Will follow patient with you. Please call if any Qs. had d/w team Dr Andrea Marin Office: [phone] Chief Complaint; burning urination HPI: Pt is a 72 M with hx of ESRD on PD, chronic anemia, hyperphosphatemia, secondary hyperparathyroidism, Diabetes Mellitus, hypertension, CAD/p stent presented with complaints of dysuria and being managed for UTI with sepsis.pt feels better. Renal consult requested for ESRD management. reports PD fluid clear and denies pain abdomen. ROS: Cardiovascular: No chest pain. Pulmonary: No shortness of breath Gastrointestinal: denies abdominal pain No nausea. No vomiting. says fluid has been clear Genitourinary: c/o mild pain while urinating. Denies blood in urine. All other negative except as mentioned in HPI refused to instill 2 L of PD fluid for each exchange as advised. Physical Examination: General Appearance: Comfortable, in no acute respiratory distress, co-operative . Vitals reviewed and noted as below Head; Atraumatic, normocephalic ENT: no ulcers no thrush. Tongue is midline. Oropharynx: no rash or ulcers. EYES: Pupils are equal, round and reactive to light accommodation. Eye muscles and extraocular movement intact. Sclera is anicteric. Neck; supple no lymphadenopathy, no thyromegaly or bruit Lungs: Normal respiratory rate/effort. Breath sounds bilateral equal and clear Heart: Normal rate. s1s2 normal. No rub or gallop. Extremities: 1-2+ edema. No varicose veins. hx of left hand amputation Neurological: Patient is alert, awake and oriented to person, place and time. No focal deficit. Strength bilateral appropriate and equal Skin: Warm and dry. Normal turgor. No rash. Palpitation: Normal elasticity for age Abdomen: Abdomen is soft. Bowel sounds +. There is no abdominal tenderness, no guarding/rigidity or organomegaly Psych: normal insight and normal affect/mood MSK: no joint tenderness or swelling. Digits and nails normal, no deformity : kidney or bladder not palpable Access: PD catheter Labs/imaging reviewed. Past medical history, past surgical history, family history, social history, allergy reviewed and noted as below Family Hx: no hx of CKD. Non contributory Objective - Vital Signs/Intake and Output Vital Signs (last 24 hours): Temp Pulse Resp BP Pulse Ox 98.9 F 78 20 130/78 95 04/21/18 08:50 04/21/18 11:45 04/21/18 08:50 04/21/18 11:45 04/21/18 08:50 Intake and Output: 04/21/18 04/21/18 06:59 18:59 Intake Total 1640 Output Total 2300 Balance -660 - Medications Medications: Current Medications Acetaminophen (Tylenol 325mg Tab) 650 mg PO Q6H PRN PRN Reason: Fever >100.4 F Aspirin (Aspirin Chewable) 81 mg PO DAILY [facility] Last Admin: 04/21/18 11:45 Dose: 81 mg Atorvastatin Calcium (Lipitor) 10 mg PO DAILY [facility] Last Admin: 04/21/18 11:47 Dose: 10 mg Clonidine HCl (Catapres) 0.1 mg PO BID [facility] Last Admin: 04/21/18 11:45 Dose: 0.1 mg Darbepoetin Jcarlos (Aranesp) 100 mcg SC QWK [facility] Ferrous Gluconate (Fergon) 324 mg PO TID [facility] Last Admin: 04/21/18 11:45 Dose: 324 mg Furosemide (Lasix) 80 mg PO DAILY [facility] Last Admin: 04/21/18 11:44 Dose: 80 mg Cefepime HCl (Maxipime 1gm) 1 gm in 100 mls @ 25 mls/hr IVPB Q24H [facility]; Protocol Stop: 04/28/18 10:46 Last Admin: 04/20/18 11:43 Dose: 25 mls/hr Insulin Human Regular (Humulin R Med) 0 units SC ACHS [facility]; Protocol Last Admin: 04/21/18 11:46 Dose: 1 units Losartan Potassium (Cozaar) 100 mg PO DAILY [facility] Last Admin: 04/21/18 11:43 Dose: 100 mg Metoprolol Tartrate (Lopressor) 100 mg PO BID [facility] Last Admin: 04/21/18 11:44 Dose: 100 mg Ondansetron HCl (Zofran Inj) 4 mg IVP Q6H PRN PRN Reason: Nausea/Vomiting Ticagrelor (Brilinta) 90 mg PO BID [facility] Last Admin: 04/21/18 11:44 Dose: 90 mg Tramadol HCl (Ultram) 50 mg PO TID PRN PRN Reason: Pain, moderate (4-7) Last Admin: 04/20/18 11:38 Dose: 50 mg Vitamin B Complex/Vit C/Folic Acid (Nephro-Lay) 1 tab PO 0800 [facility] Last Admin: 04/21/18 09:25 Dose: 1 tab - Labs Labs: 04/21/18 05:30 04/21/18 05:30 PT 13.6 SECONDS (9.4-12.5) H 04/15/18 17:14 INR 1.19 04/15/18 17:14 APTT 26.2 Seconds (25.1-36.5) 04/15/18 17:14
--- NOTE | 2018-04-21 15:46 | CP.PCM.PN ---
Subjective - Date & Time of Evaluation Date of Evaluation: 04/21/18 Time of Evaluation: 08:05 - Subjective Subjective: Comfortable, no fevers, no more flank pain, no nausea, no diarrhea. Objective - Vital Signs/Intake and Output Vital Signs (last 24 hours): Temp Pulse Resp BP Pulse Ox 98.5 F 110 H 20 157/87 H 98 04/20/18 08:03 04/20/18 11:37 04/20/18 08:03 04/20/18 11:42 04/20/18 08:03 Intake and Output: 04/20/18 04/20/18 06:59 18:59 Intake Total 1080 Output Total 1100 Balance -20 - Medications Medications: Current Medications Acetaminophen (Tylenol 325mg Tab) 650 mg PO Q6H PRN PRN Reason: Fever >100.4 F Al Hydrox/Mg Hydrox/Simethicone (Maalox Plus 30 Ml) 30 ml PO DAILY PRN PRN Reason: Indigestion / Heartburn Last Admin: 04/19/18 12:19 Dose: 30 ml Aspirin (Aspirin Chewable) 81 mg PO DAILY [facility] Last Admin: 04/20/18 11:36 Dose: 81 mg Atorvastatin Calcium (Lipitor) 10 mg PO DAILY [facility] Last Admin: 04/20/18 11:43 Dose: 10 mg Clonidine HCl (Catapres) 0.1 mg PO BID [facility] Last Admin: 04/20/18 11:42 Dose: 0.1 mg Cefepime HCl (Maxipime 1gm) 1 gm in 100 mls @ 25 mls/hr IVPB Q24H [facility]; Protocol Stop: 04/28/18 10:46 Last Admin: 04/20/18 11:43 Dose: 25 mls/hr Insulin Human Regular (Humulin R Med) 0 units SC ACHS [facility]; Protocol Last Admin: 04/20/18 11:55 Dose: 3 units Losartan Potassium (Cozaar) 100 mg PO DAILY [facility] Last Admin: 04/20/18 11:37 Dose: 100 mg Magnesium Oxide (Mag-Ox) 400 mg PO BID [facility] Last Admin: 04/20/18 11:37 Dose: 400 mg Metoprolol Tartrate (Lopressor) 50 mg PO BID [facility] Last Admin: 04/20/18 11:37 Dose: 50 mg Ondansetron HCl (Zofran Inj) 4 mg IVP Q6H PRN PRN Reason: Nausea/Vomiting Phenazopyridine HCl (Pyridium) 100 mg PO TID [facility] Last Admin: 04/20/18 11:43 Dose: 100 mg Ticagrelor (Brilinta) 90 mg PO BID [facility] Last Admin: 04/20/18 11:37 Dose: 90 mg Tramadol HCl (Ultram) 50 mg PO TID PRN PRN Reason: Pain, moderate (4-7) Last Admin: 04/20/18 11:38 Dose: 50 mg Vitamin B Complex/Vit C/Folic Acid (Nephro-Lay) 1 tab PO 0800 [facility] Last Admin: 04/20/18 08:21 Dose: 1 tab - Labs Labs: 04/20/18 06:00 04/20/18 06:00 PT 13.6 SECONDS (9.4-12.5) H 04/15/18 17:14 INR 1.19 04/15/18 17:14 APTT 26.2 Seconds (25.1-36.5) 04/15/18 17:14 - Constitutional Appears: Chronically Ill - Head Exam Head Exam: NORMAL INSPECTION - Respiratory Exam Respiratory Exam: Decreased Breath Sounds - Cardiovascular Exam Cardiovascular Exam: +S1, +S2 - GI/Abdominal Exam GI & Abdominal Exam: Soft. absent: Tenderness Assessment and Plan - Assessment and Plan (Free Text) Plan: Assessment Sepsis due to left sided pyelonephritis with E. coli DM ESRD on PD chronic CHF Plan continue Cefepime day 3 - repeat urine cx, repeat blood cx are negative and CXR PA-L does not show infiltrates will continue to monitor clinically, trend WBC count, trend fever curve discussed with Dr. Purvis should get total 10-14 days of antibiotics
[2018-04-21] MEDS: Cefepime 1gm in NS 100ml 1 GM/100 ML BAG IVPB SCH (16:26)
[2018-04-21 17:38] LABS: FERRITIN 73.1 ng/mL
[2018-04-21 18:08] LABS: FOLATE 13.5 ng/mL
[2018-04-21 19:20] VITALS: RESP 18
[2018-04-22 07:27] LABS: ALB/GLOB RATIO 0.9 (1.1-1.8); ALBUMIN 2.7 g/dL (3.0-4.8)
[2018-04-22 07:34] LABS: HEMOGLOBIN 8.6 g/dL (14.0-18.0); MEAN CELL VOLUME 79.8 fl (80.0-105.0); MEAN CORPUSCULAR HEMOGLOBIN 25.6 pg (25.0-35.0); MEAN CORPUSCULAR HGB CONC 32.1 g/dl (31.0-37.0); MEAN PLATELET VOLUME 9.3 fl (7.0-11.0); RBC 3.36 10^6/uL (3.5-6.1); RED CELL DISTRIBUTION WIDTH 15.4 % (11.5-14.5); WHITE BLOOD COUNT 11.6 10^3/uL (4.5-11.0)
[2018-04-22] MEDS ORDERED: Potassium Chloride 20 mEq ER Tab PO SCH (08:00)
[2018-04-22 08:09] VITALS: O2SAT 98
[2018-04-22] MEDS: Insulin Reg-MEDIUM-Coverage SC SCH ×2 (08:42→13:06)
[2018-04-22] MEDS: Multivitamin Vitamin B Complex (Nephro-Vite) Tab PO SCH (08:43)
--- NOTE | 2018-04-22 09:50 | PN ---
DATE: 04/22/2018 SUBJECTIVE: He is sitting up in bed. He is having more problems when he urinates. He has a burning sensation. I believe the Pyridium fell off the shanel. I put him back on it. MEDICATIONS: He is also on Aranesp, aspirin, Brilinta, Catapres, Cozaar, iron, potassium replacement, Lasix, Lipitor, metoprolol, cefepime IV, vitamin B complex, Pyridium, Tylenol, Ultram and Zofran. PHYSICAL EXAMINATION: VITAL SIGNS: Temperature 99, pulse 79, blood pressure 162/74, respiratory rate 18, 90% sat on room air. HEAD: Atraumatic, normocephalic. THROAT: Moist. NECK: Supple. HEART: Regular rate. LUNGS: Decreased breath sounds, but clear. ABDOMEN: Soft. Nontender. Positive bowel sounds. No tenderness over the bladder. EXTREMITIES: No edema. LABORATORY DATA: White count 11.6, still hovering; hemoglobin 8.6, received another transfusion today of blood. It was 7.6 yesterday, hematocrit 26.8 with 227 platelets. Sodium 135, potassium 3.6, BUN 55 and creatinine 6.1. On peritoneal dialysis. GFR is 9. Total sugar is 188, calcium is 8, total bili is 0.7, AST is 27, ALT is 41, alk phos 91, total protein is 5.7. He is iron. Leukocytes went from moderate to trace in the urine. He is definitely improving. Hopefully on a few more days of antibiotics, he will be able to be discharged soon. We will continue with aggressive treatment and care. Put him back on the Pyridium. I added labs for tomorrow. Trenton Purvis DO
[2018-04-22] MEDS: Cefepime 1gm in NS 100ml 1 GM/100 ML BAG IVPB SCH (12:00)
[2018-04-22 12:20] VITALS: BP 143/69; PULSE 75; TEMP 98.4
--- NOTE | 2018-04-22 20:25 | CP.PCM.PN ---
Subjective - Date & Time of Evaluation Date of Evaluation: 04/22/18 Time of Evaluation: 09:55 - Subjective Subjective: Comfortable, no flank pain, no nausea or vomiting, no fevers. Objective - Vital Signs/Intake and Output Vital Signs (last 24 hours): Temp Pulse Resp BP Pulse Ox 98.9 F 78 20 130/78 95 04/21/18 08:50 04/21/18 11:45 04/21/18 08:50 04/21/18 11:45 04/21/18 08:50 Intake and Output: 04/21/18 04/21/18 06:59 18:59 Intake Total 1640 Output Total 2300 Balance -660 - Medications Medications: Current Medications Acetaminophen (Tylenol 325mg Tab) 650 mg PO Q6H PRN PRN Reason: Fever >100.4 F Aspirin (Aspirin Chewable) 81 mg PO DAILY [facility] Last Admin: 04/21/18 11:45 Dose: 81 mg Atorvastatin Calcium (Lipitor) 10 mg PO DAILY [facility] Last Admin: 04/21/18 11:47 Dose: 10 mg Clonidine HCl (Catapres) 0.1 mg PO BID [facility] Last Admin: 04/21/18 11:45 Dose: 0.1 mg Darbepoetin Jcarlos (Aranesp) 100 mcg SC QWK [facility] Last Admin: 04/21/18 14:10 Dose: 100 mcg Ferrous Gluconate (Fergon) 324 mg PO TID [facility] Last Admin: 04/21/18 11:45 Dose: 324 mg Furosemide (Lasix) 80 mg PO DAILY [facility] Last Admin: 04/21/18 11:44 Dose: 80 mg Cefepime HCl (Maxipime 1gm) 1 gm in 100 mls @ 25 mls/hr IVPB Q24H [facility]; Protocol Stop: 04/28/18 10:46 Last Admin: 04/20/18 11:43 Dose: 25 mls/hr Insulin Human Regular (Humulin R Med) 0 units SC ACHS [facility]; Protocol Last Admin: 04/21/18 11:46 Dose: 1 units Losartan Potassium (Cozaar) 100 mg PO DAILY [facility] Last Admin: 04/21/18 11:43 Dose: 100 mg Metoprolol Tartrate (Lopressor) 100 mg PO BID [facility] Last Admin: 04/21/18 11:44 Dose: 100 mg Ondansetron HCl (Zofran Inj) 4 mg IVP Q6H PRN PRN Reason: Nausea/Vomiting Potassium Chloride (K-Dur 20 Meq Er Tab) 20 meq PO BRK [facility] Ticagrelor (Brilinta) 90 mg PO BID [facility] Last Admin: 04/21/18 11:44 Dose: 90 mg Tramadol HCl (Ultram) 50 mg PO TID PRN PRN Reason: Pain, moderate (4-7) Last Admin: 04/20/18 11:38 Dose: 50 mg Vitamin B Complex/Vit C/Folic Acid (Nephro-Lay) 1 tab PO 0800 [facility] Last Admin: 04/21/18 09:25 Dose: 1 tab - Labs Labs: 04/21/18 05:30 04/21/18 05:30 PT 13.6 SECONDS (9.4-12.5) H 04/15/18 17:14 INR 1.19 04/15/18 17:14 APTT 26.2 Seconds (25.1-36.5) 04/15/18 17:14 - Constitutional Appears: Chronically Ill - Head Exam Head Exam: NORMAL INSPECTION - Respiratory Exam Respiratory Exam: Decreased Breath Sounds - Cardiovascular Exam Cardiovascular Exam: +S1, +S2 - GI/Abdominal Exam GI & Abdominal Exam: Soft. absent: Tenderness Assessment and Plan - Assessment and Plan (Free Text) Plan: Assessment Sepsis due to left sided pyelonephritis with E. coli DM ESRD on PD chronic CHF Plan continue Cefepime day 4 - repeat urine cx, repeat blood cx are negative and CXR PA-L does not show infiltrates discussed with Dr. Purvis should get total 10-14 days of antibiotics and can switch to PO vantin when ready to be discharged
== END 2018-04-22 13:51 | disposition home or self-care (01) | DRG 871 ==
LOC: ED 17:08 → ERH 19:31 → 3RNO 21:25
PROVIDERS: ADMIT Family Medicine; ATTEND Family Medicine
PROC: 30233N1 Transfusion of Nonautologous Red Blood Cells into Peripheral Vein, Percutaneous Approach (ICD-10-PCS; principal; 2018-04-21)
DX: A41.9 Sepsis, unspecified organism (principal); N18.6 End stage renal disease; N12 Tubulo-interstitial nephritis, not specified as acute or chronic; I13.2 Hypertensive heart and chronic kidney disease with heart failure and with stage 5 chronic kidney disease, or end stage renal disease; I50.22 Chronic systolic (congestive) heart failure; E87.1 Hypo-osmolality and hyponatremia; N25.81 Secondary hyperparathyroidism of renal origin; E11.22 Type 2 diabetes mellitus with diabetic chronic kidney disease; E83.42 Hypomagnesemia; E83.39 Other disorders of phosphorus metabolism; E11.65 Type 2 diabetes mellitus with hyperglycemia; E11.43 Type 2 diabetes mellitus with diabetic autonomic (poly)neuropathy; K31.84 Gastroparesis; E87.6 Hypokalemia; I25.10 Atherosclerotic heart disease of native coronary artery without angina pectoris; I25.2 Old myocardial infarction; B96.20 Unspecified Escherichia coli [E. coli] as the cause of diseases classified elsewhere; D63.8 Anemia in other chronic diseases classified elsewhere; Z99.2 Dependence on renal dialysis; Z79.82 Long term (current) use of aspirin; Z87.891 Personal history of nicotine dependence; Z86.73 Personal history of transient ischemic attack (TIA), and cerebral infarction without residual deficits; Z95.5 Presence of coronary angioplasty implant and graft; Z87.442 Personal history of urinary calculi